=== PATIENT | male | born 1980 | race Hispanic/Latino ===

== ENCOUNTER 2017-06-25 20:09 | Inpatient (IN) | payer OTHER ==
[2017-06-25 20:26] VITALS: BMI 33.9
--- NOTE | 2017-06-25 21:20 | ED PDOC ---
Arrival/HPI - General Chief Complaint: Lower Extremity Problem/Injury Time Seen by Provider: 06/25/17 20:17 Historian: Patient - History of Present Illness Narrative History of Present Illness (Text): 06/25/17 21:21 A 37 year old male, whose past medical history includes alcohol liver disease, possible hepatitis, presents to the emergency department complaining of increasing lower extremity edema and shortness of breath with exertion for the past 1-2 weeks. Patient admits symptoms starting a year ago and PMD relates symptoms to alcohol liver disease. Patient was referred to emergency department by PMD. Denies any recent fever, chills or cough. Notes shortness of breath is worse when climbing stairs. Admits to daily alcohol drinking. Denies any drug use. Patient reports weight gain but denies any chest pain, abdominal pain or any other complaints at this time. PMD: Dr. Moore Time/Duration: Other (1-2 weeks) Symptom Onset: Sudden Symptom Course: Unchanged Activities at Onset: Rest Context: Home Past Medical History - Provider Review Nursing Documentation Reviewed: Yes - Cardiac Hx Cardiac Disorders: No - Pulmonary Hx Respiratory Disorders: No - Neurological Hx Neurological Disorder: No - HEENT Hx HEENT Disorder: No - Renal Hx Renal Disorder: No - Endocrine/Metabolic Hx Endocrine Disorders: No - Hematological/Oncological Hx Blood Disorders: No - Integumentary Hx Dermatological Disorder: No - Musculoskeletal/Rheumatological Hx Musculoskeletal Disorders: No - Gastrointestinal Hx Gastrointestinal Disorders: No - Genitourinary/Gynecological Hx Genitourinary Disorders: No - Psychiatric Hx Psychophysiologic Disorder: No Hx Substance Use: No - Anesthesia Hx Anesthesia: No Family/Social History - Physician Review Nursing Documentation Reviewed: Yes Family/Social History: No Known Family HX Smoking Status: Light Smoker < 10 Cigarettes Daily Hx Alcohol Use: Yes Frequency of alcohol use: Socially Hx Substance Use: No Allergies/Home Meds Allergies/Adverse Reactions: Allergies No Known Allergies Allergy (Verified 06/25/17 20:26) Home Medications: Home Meds Medication Instructions Recorded Confirmed No Known Home Med 06/25/17 06/25/17 Review of Systems - Physician Review All systems were reviewed & negative as marked: Yes - Review of Systems Constitutional: absent: Fevers, Other (chills) Respiratory: SOB (with exertion). absent: Cough Cardiovascular: absent: Chest Pain Gastrointestinal: absent: Abdominal Pain Musculoskeletal: Other (increasing b/l peripheral edema) Physical Exam Vital Signs Reviewed: Yes Vital Signs Temp Pulse Resp BP Pulse Ox 06/25/17 20:26 97.9 F 139 H 18 133/92 H 98 06/25/17 20:25 97.9 F 139 H 18 133/92 H 98 Temperature: Afebrile Blood Pressure: Hypertensive Pulse: Tachycardic Respiratory Rate: Normal Appearance: Positive for: Well-Appearing, Non-Toxic, Comfortable, Other ( shortness of breath with minimal exertion) Pain Distress: None Mental Status: Positive for: Alert and Oriented X 3 - Systems Exam Head: Present: Atraumatic, Normocephalic Pupils: Present: PERRL Extroacular Muscles: Present: EOMI Conjunctiva: Present: Normal Mouth: Present: Moist Mucous Membranes (pink) Neck: Present: Normal Range of Motion. No: JVD Respiratory/Chest: Present: Clear to Auscultation, Good Air Exchange. No: Respiratory Distress, Accessory Muscle Use Cardiovascular: Present: Normal S1, S2, Tachycardic. No: Murmurs Abdomen: Present: Tenderness (minimal diffuse tenderness; questionable ascites) , Distention, Normal Bowel Sounds. No: Peritoneal Signs Back: Present: Normal Inspection Upper Extremity: Present: Normal Inspection. No: Cyanosis, Edema Lower Extremity: Present: Edema (gross peripheral edema b/l) Neurological: Present: GCS=15, CN II-XII Intact, Speech Normal Skin: Present: Warm, Dry, Normal Color. No: Rashes Psychiatric: Present: Alert, Oriented x 3, Normal Insight, Normal Concentration Medical Decision Making ED Course and Treatment: 06/25/17 21:14 Impression: A 37 year old male with increasing lower extremity edema and shortness of breath with exertion. Plan: -- Chest xray -- labs -- Reassess and disposition Progress Notes: - Lab Interpretations Lab Results: 06/25/17 21:05 06/25/17 21:05 Lab Results 06/25/17 21:05: Alcohol, Quantitative 127 H 06/25/17 21:05: Sodium 127 L, Potassium 4.5, Chloride 91 L, Carbon Dioxide 26, Anion Gap 15, BUN 5 L, Creatinine 0.6 L, Est GFR ( Amer) > 60, Est GFR ( Non-Af Amer) > 60, Random Glucose 98, Calcium 9.0, Magnesium 1.6 L, Total Bilirubin 1.7 H, AST 116 H, ALT 124 H, Alkaline Phosphatase 93, Total Protein 6.0, Albumin 3.4, Globulin 2.6, Albumin/Globulin Ratio 1.3 06/25/17 21:05: PT 15.1 H, INR 1.38 H 06/25/17 21:05: WBC 6.2, RBC 3.81, Hgb 13.7 L, Hct 40.9 L, MCV 107.3 H, MCH 36.0 H, MCHC 33.5, RDW 13.5, Plt Count 171, MPV 10.8, Gran % 70.2 H, Lymph % ( Auto) 16.5 L, [place] % (Auto) 12.5 H, Eos % (Auto) 0.5 L, Baso % (Auto) 0.3, Gran # 4.37, Lymph # 1.0 L, [place] # 0.8 H, Eos # 0.0, Baso # 0.02 I have reviewed the lab results: Yes - RAD Interpretation Radiology Orders: 06/25/17 21:50 CHEST TWO VIEWS (PA/LAT) [RAD] Stat - Scribe Statement The provider has reviewed the documentation as recorded by the Yoni Whaley Provider Scribe Attestation: All medical record entries made by the Scribe were at my direction and personally dictated by me. I have reviewed the chart and agree that the record accurately reflects my personal performance of the history, physical exam, medical decision making, and the department course for this patient. I have also personally directed, reviewed, and agree with the discharge instructions and disposition. Disposition/Present on Arrival - Present on Arrival Any Indicators Present on Arrival: No History of DVT/PE: No History of Uncontrolled Diabetes: No Urinary Catheter: No History of Decub. Ulcer: No History Surgical Site Infection Following: None - Disposition Have Diagnosis and Disposition been Completed?: Yes Diagnosis: Anasarca, Alcoholic liver disease Disposition: HOSPITALIZED Disposition Time: 22:30 Patient Plan: Admission Condition: FAIR Referrals: Rios Moore MD [Primary Care Provider] - Follow up with primary Forms: [employer] ([place])
[2017-06-25 21:28] LABS: BASO # 0.02 K/mm3 (0.0-2.0); BASO % 0.3 % (0.0-3.0); EOS % 0.5 % (1.5-5.0); GRAN # 4.37 (1.4-6.5); GRAN % 70.2 % (50.0-68.0); HEMOGLOBIN 13.7 g/dL (14.0-18.0); LYMPH % 16.5 % (22.0-35.0); MEAN CELL VOLUME 107.3 fl (80.0-105.0); MEAN CORPUSCULAR HGB CONC 33.5 g/dl (31.0-37.0); MEAN PLATELET VOLUME 10.8 fl (7.0-11.0); MONO # 0.8 (0.1-0.6); MONO % 12.5 % (1.0-6.0); RBC 3.81 10^6/uL (3.5-6.1); RED CELL DISTRIBUTION WIDTH 13.5 % (11.5-14.5); WHITE BLOOD COUNT 6.2 10^3/ul (4.5-11.0)
[2017-06-25 21:38] LABS: ALB/GLOB RATIO 1.3 (1.1-1.8); ALBUMIN 3.4 g/dL (3.0-4.8); ALT/SGPT 124 U/L (7-56); AST/SGOT 116 U/L (17-59); BLOOD UREA NITROGEN 5 mg/dL (7-21); GFR AFRICAN-AMERICAN > 60; GFR NON-AFRICAN AMERICAN > 60; MAGNESIUM 1.6 mg/dL (1.7-2.2)
[2017-06-25 21:56] LABS: INR 1.38 (0.93-1.08); PROTHROMBIN TIME 15.1 SECONDS (9.4-12.5)
[2017-06-26] MEDS ORDERED: Multivitamin (MVI) 10 ML, Thiamine 100 MG, Folic Acid 1 MG in Sodium Chloride 0.9% 1,00... IV ONE (00:54)
[2017-06-26] MEDS ORDERED: Magnesium Sulfate 2 GM in Sodium Chloride 0.9% 100 ML IVPB ONE ×2 (00:54→10:02)
[2017-06-26 02:17] LABS: TROPONIN I 0.02 ng/mL
--- NOTE | 2017-06-26 02:18 | CP.PCM.HP ---
<Nanci Olivera - Last Filed: 06/26/17 01:38> History of Present Illness - History of Present Illness History of Present Illness: Nanci Olivera DO PGY1 - Internal Medicine H&P CC: Leg swelling HPI: 37 yo M with no significant PMH presents complaining of worsening swelling in both legs up to his mid abdomen, as well as shortness of breath with exertion. Swelling started one month ago in his feet, and progressed over the course of the month resulting in heaviness and weakness in both legs. He also reports poor appetite and fatigue over the past 2-3 weeks, and 5-10 pound weight gain over the past month. Patient reports that he drinks 6-8 alcoholic beverages daily 4-5 days per week for the past 8 years. Last drink was yesterday evening. Patient denies any chest pain, palpitations, abdominal pain, nausea, vomiting, diarrhea, constipation, fever, chills. Remainder of 12 point ROS was negative. PMH: Denies PSH: Denies Home meds: None FHx: Crohn Disease in mother, HTN in father Soc: Drinks 6-8 alcoholic beverages daily 4-5 days per week for the past 8 years ; denies tobacco or illicits All: NKDA Present on Admission - Present on Admission Any Indicators Present on Admission: No Past Patient History - Past Social History Smoking Status: Light Smoker < 10 Cigarettes Daily - CARDIAC Hx Cardiac Disorders: No - PULMONARY Hx Respiratory Disorders: No - NEUROLOGICAL Hx Neurological Disorder: No - HEENT Hx HEENT Problems: No - RENAL Hx Chronic Kidney Disease: No - ENDOCRINE/METABOLIC Hx Endocrine Disorders: No - HEMATOLOGICAL/ONCOLOGICAL Hx Blood Disorders: No - INTEGUMENTARY Hx Dermatological Problems: No - MUSCULOSKELETAL/RHEUMATOLOGICAL Hx Musculoskeletal Disorders: No - GASTROINTESTINAL Hx Gastrointestinal Disorders: No - GENITOURINARY/GYNECOLOGICAL Hx Genitourinary Disorders: No - PSYCHIATRIC Hx Psychophysiologic Disorder: No Hx Substance Use: No - SURGICAL HISTORY Hx Surgeries: No - ANESTHESIA Hx Anesthesia: No Meds Allergies/Adverse Reactions: Allergies Allergy/AdvReac Type Severity Reaction Status Date / Time No Known Allergies Allergy Verified 06/25/17 20:26 Physical Exam - Constitutional Appears: Non-toxic, No Acute Distress - Head Exam Head Exam: ATRAUMATIC, NORMOCEPHALIC - Eye Exam Eye Exam: EOMI, Normal appearance, PERRL, Scleral icterus. absent: Periorbital swelling - ENT Exam ENT Exam: Mucous Membranes Dry - Neck Exam Neck exam: Positive for: Normal Inspection - Respiratory Exam Respiratory Exam: Rales (faint, bibasilar), NORMAL BREATHING PATTERN - Cardiovascular Exam Cardiovascular Exam: Tachycardia, REGULAR RHYTHM, +S1, +S2 Additional comments: Occasionally audible S3 vs split S2 - GI/Abdominal Exam GI & Abdominal Exam: Distended, Normal Bowel Sounds, Soft. absent: Firm, Guarding, Organomegaly, Rebound, Rigid, Tenderness Additional comments: No shifting dullness. No fluid wave. - Extremities Exam Extremities exam: Negative for: calf tenderness Additional comments: 4+ pitting edema to mid abdomen/back - Neurological Exam Neurological exam: Alert, CN II-XII Intact, Oriented x3 Additional comments: Mild tremor in outstretched hands. No asterixis. No confusion. - Psychiatric Exam Psychiatric exam: Normal Affect, Normal Mood Additional comments: Normal thought processes. AAOx3 - Skin Skin Exam: Dry, Intact Additional comments: Grossly jaundiced Excoriations on bilateral flanks, abdomen, and back. Blanchable erythema on face, chest, abdomen, and extremities. No palmar erythema. No telangiectasias. Results - Vital Signs Recent Vital Signs: Last Vital Signs Temp 97.9 F 06/25/17 20:26 Pulse 118 H 06/26/17 00:41 Resp 24 06/26/17 00:41 BP 98/76 L 06/26/17 00:48 Pulse Ox 98 06/26/17 00:41 - Labs Result Diagrams: 06/25/17 21:05 06/25/17 21:05 Labs: Laboratory Results - last 24 hr 06/25/17 22:55 Ammonia < 9 L Assessment & Plan - Assessment and Plan (Free Text) Assessment: 37 yo M with no significant PMH presents complaining of worsening edema and shortness of breath, for the past month; reports chronic alcohol abuse. Decompensated alcoholic liver disease - Patient reports chronic alcohol abuse, now presents with diffuse edema, elevated INR and transaminases - MELD 21 on admission - Monitor daily PT/INR and trend LFTs - Abdomen distended but no shifting dullness/fluid wave; No signs of encephalopathy - Ordered abdominal US to assess for ascites and liver size, echotexture, and nodularity - Ordered viral hepatitis panel - Mild macrocytic anemia on intake labs; ordered serum folate and B12 - Start Lasix and Aldactone, as below - Start Zinc supplement - GI consult requested, appreciate recs Congestive heart failure - Patient clinically appears to be in congestive heart failure; grossly edematous with cardiomegaly on CXR - Ordered BNP and serial troponins - Ordered echo - Start Lasix and Aldactone, as below; Ordered one dose to be given in ER - Requested cardiology consult, appreciate recs Alcohol abuse/withdrawal - Alcohol level in ER 127 - Patient appears to be in early stages of withdrawal - Start CIWA protocol - Start Ativan 2mg IV Q2H PRN for withdrawal - Start Banana Bag - Seizure/Fall precautions Hypervolemic Hyponatremia - Na 127 on admission; patient clinically volume overloaded - Likely 2/2 CHF vs cirrhosis - Ordered Serum and Urine osmolality; urine electrolytes - Start Banana Bag in NS, as above - Start Lasix 20 IV daily, aldactone 25mg BID - Restrict free water GI PPx: Pepcid DVT PPx: Heparin Patient seen, discussed, and reviewed with attending Dr. Casi Gallego <Edu Gallego - Last Filed: 06/29/17 02:06> Results - Vital Signs Recent Vital Signs: Last Vital Signs Temp 98.4 F 06/26/17 05:45 Pulse 117 H 06/26/17 05:45 Resp 20 06/26/17 05:45 BP 110/64 06/26/17 05:45 Pulse Ox 95 06/26/17 05:45 - Labs Result Diagrams: 06/28/17 05:00 06/28/17 05:00 Labs: Laboratory Results - last 24 hr 06/25/17 06/26/17 06/26/17 22:55 01:30 03:20 Ammonia < 9 L Troponin I 0.02 NT-Pro-B Natriuret Pep 5480 H Urine Color Urine Appearance Urine pH Ur Specific [place] Urine Protein Urine Glucose (UA) Urine Ketones Urine Blood Urine Nitrate Urine Bilirubin Urine Urobilinogen Ur Leukocyte Esterase Ur Random Sodium 58 Ur Random Potassium 19.7 06/26/17 03:20 Ammonia Troponin I NT-Pro-B Natriuret Pep Urine Color Straw Urine Appearance Clear Urine pH 6.0 Ur Specific [place] <= 1.005 Urine Protein Negative Urine Glucose (UA) Negative Urine Ketones Negative Urine Blood Negative Urine Nitrate Negative Urine Bilirubin Negative Urine Urobilinogen 0.2 Ur Leukocyte Esterase Negative Ur Random Sodium Ur Random Potassium
[2017-06-26 04:06] LABS: URINE BILIRUBIN NEGATIVE (NEGATIVE); URINE BLOOD NEGATIVE (NEGATIVE); URINE GLUCOSE (UA) NEGATIVE (NEGATIVE); URINE LEUKOCYTE ESTERASE NEGATIVE Leu/uL (NEGATIVE); URINE NITRATE NEGATIVE (NEGATIVE); URINE PROTEIN NEGATIVE mg/dL (<30 mg/dL); URINE UROBILINOGEN 0.2 E.U./dL (<1 E.U./dL)
[2017-06-26 04:19] LABS: URINE APPEARANCE CLEAR (CLEAR); URINE COLOR STRAW (YELLOW)
[2017-06-26 06:39] LABS: BASO # 0.03 K/mm3 (0.0-2.0); BASO % 0.5 % (0.0-3.0); EOS % 0.7 % (1.5-5.0); GRAN # 3.86 (1.4-6.5); GRAN % 69.8 % (50.0-68.0); LYMPH # 0.9 (1.2-3.4); LYMPH % 15.4 % (22.0-35.0); MEAN CORPUSCULAR HEMOGLOBIN 35.7 pg (25.0-35.0); MEAN CORPUSCULAR HGB CONC 33.1 g/dl (31.0-37.0); MEAN PLATELET VOLUME 10.5 fl (7.0-11.0); MONO # 0.8 (0.1-0.6); MONO % 13.6 % (1.0-6.0); RBC 3.64 10^6/uL (3.5-6.1); RED CELL DISTRIBUTION WIDTH 13.7 % (11.5-14.5); WHITE BLOOD COUNT 5.5 10^3/ul (4.5-11.0)
[2017-06-26 06:55] LABS: ALBUMIN 3.1 g/dL (3.0-4.8); ALT/SGPT 118 U/L (7-56); AST/SGOT 108 U/L (17-59); BLOOD UREA NITROGEN 4 mg/dL (7-21); CALCIUM 8.8 mg/dL (8.4-10.5); GFR AFRICAN-AMERICAN > 60; GFR NON-AFRICAN AMERICAN > 60; MAGNESIUM 1.6 mg/dL (1.7-2.2)
[2017-06-26 06:57] LABS: TROPONIN I 0.03 ng/mL
[2017-06-26 06:59] LABS: INR 1.34 (0.93-1.08); PROTHROMBIN TIME 14.8 SECONDS (9.4-12.5)
[2017-06-26 07:30] LABS: ALB/GLOB RATIO 1.3 (1.1-1.8)
--- NOTE | 2017-06-26 08:45 | RAD ---
HISTORY: Shortness of breath. COMPARISON: No prior. TECHNIQUE: Chest PA and lateral FINDINGS: LUNGS: Right lower lobe infiltrate suggestive of pneumonia. PLEURA: No significant pleural effusion identified. No pneumothorax apparent. CARDIOVASCULAR: Cardiomegaly, pulmonary vascular prominence. OSSEOUS STRUCTURES: No significant abnormalities. VISUALIZED UPPER ABDOMEN: Normal. OTHER FINDINGS: None. IMPRESSION: Right lower lobe infiltrate suspicious for pneumonia.
--- NOTE | 2017-06-26 08:57 | US ---
HISTORY: Cirrhosis/ascites COMPARISON: None. TECHNIQUE: Sonographic evaluation of the abdomen. FINDINGS: LIVER: Measures 21.8 cm. Hepatopedal blood flow. Fatty infiltration manifest ultrasonographically as increased echogenicity of the liver parenchyma. No mass. No intrahepatic bile duct dilatation. GALLBLADDER: Distended gallbladder. No gallstones identified. COMMON BILE DUCT: Measures 5.3 mm. No stones. No dilatation. PANCREAS: Unremarkable as visualized. No mass. No ductal dilatation. RIGHT KIDNEY: Measures 5.3 x 13.2cm. Normal echogenicity. No calculus, mass, or hydronephrosis. LEFT KIDNEY: Measures 6.4 x 14.3cm. Normal echogenicity. No calculus, mass, or hydronephrosis. SPLEEN: Normal in size and contour. No mass. AORTA: No aneurysmal dilatation. IVC: Unremarkable. OTHER FINDINGS: None. IMPRESSION: Hepatomegaly, hepatic steatosis. No evidence of intra-abdominal fluid.
[2017-06-26] MEDS ORDERED: Ipratropium 0.02% Inhal Soln (0.5 mg/2.5 ml) UD IH STA (11:11)
[2017-06-26 11:47] LABS: HEPATITIS B SURFACE AG NEGATIVE (NEGATIVE)
[2017-06-26 11:52] LABS: HEPATITIS A IGM NEGATIVE (NEGATIVE); HEPATITIS B CORE AB Negative (NEGATIVE)
[2017-06-26 12:04] LABS: HEPATITIS C ANTIBODY Negative (NEGATIVE)
[2017-06-26 12:26] LABS: FOLATE > 20.0 ng/mL
--- NOTE | 2017-06-26 13:20 | CON ---
DATE: 06/26/2017 CARDIOLOGY CONSULTATION HISTORY OF PRESENT ILLNESS: The patient is a 37-year-old male who presents with edema in the lower extremities over the past month. He saw his primary care doctor who sent him to the Emergency Room. PAST MEDICAL HISTORY: Notable for heavy alcohol use including 6-7 drinks a day daily. He was told of perhaps liver issues in the past but continues to drink. He denies any medications. No diabetes mellitus. No hypertension. SOCIAL HISTORY: He does smoke pot. REVIEW OF SYSTEMS: A 14-point review of systems is reviewed in detail. The patient complains of dyspnea and progressive edema. No chest pain. There is a remote history of when he was a child of what sounds like VSD, which resolved spontaneously. PHYSICAL EXAMINATION: VITAL SIGNS: Blood pressure is 110/54, heart rate is narrow complex tachycardia at 140. NECK: Negative JVD. LUNGS: Bilateral rales. HEART: Reveal S1 and S2. EXTREMITIES: 2+ edema. IMAGING STUDIES: EKG shows sinus tachycardia at 120. LABORATORY DATA: ProBNP is 5480. BUN and creatinine are unremarkable. The liver enzymes are elevated. Hemoglobin is 13. IMPRESSION: 1. Acute systolic congestive heart failure. 2. Narrow complex tachycardia, which likely represents sinus tachycardia. The patient was given 6 mg and 12 mg of IV Adenocard, which showed no change in his heart rhythm. 3. Need to rule out alcoholic cardiomyopathy. 4. Alcoholic disease of the liver. PLAN: Given these findings, we will increase his Lasix to 40 IV b.i.d. We will obtain a stat echocardiogram. His magnesium 1.6, will need to be replaced. Daniel Hernandez MD
--- NOTE | 2017-06-26 13:45 | CP.PCM.CON ---
<Robby Crook - Last Filed: 06/26/17 15:03> History of Present Illness - History of Present Illness History of Present Illness: Critical Care Consult Note for Dr. 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 Patient was admitted on 06/25 for these symptoms. He states swelling started one month ago. During that time period, he reports 5-10 pound weight gain. Patient reports that he drinks 4-5 days per week for the past 8-9 years. Last drink was two days ago. Patient states that he has had increasing pain when walking stairs. He states he is able to walk stairs without getting short of breath. Patient sleeps with one pillow at night. Patient also reports that he is able to walk several blocks before getting tired. Echo was done on this admission with EF ~ 10%. Admits cough and mild tremor. Denies fever/chills, orthopnea, chest pain, palpitations, abdominal pain , nausea/vomiting, diarrhea. 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 Meds: As per EMR Allergy: NKDA PSH: Denies FH: Crohn Disease in mother, HTN in father Social: Drinks 4-5 alcoholic beverages daily 4-5 days per week for the past 8 years; denies tobacco or illicit drug use Review of Systems - Review of Systems All systems: reviewed and no additional remarkable complaints except (as per HPI ) Past Patient History - Past Social History Smoking Status: Light Smoker < 10 Cigarettes Daily - CARDIAC Hx Cardiac Disorders: No - PULMONARY Hx Respiratory Disorders: No - NEUROLOGICAL Hx Neurological Disorder: No - HEENT Hx HEENT Problems: No - RENAL Hx Chronic Kidney Disease: No - ENDOCRINE/METABOLIC Hx Endocrine Disorders: No - HEMATOLOGICAL/ONCOLOGICAL Hx Blood Disorders: No - INTEGUMENTARY Hx Dermatological Problems: No - MUSCULOSKELETAL/RHEUMATOLOGICAL Hx Musculoskeletal Disorders: No - GASTROINTESTINAL Hx Gastrointestinal Disorders: No - GENITOURINARY/GYNECOLOGICAL Hx Genitourinary Disorders: No - PSYCHIATRIC Hx Psychophysiologic Disorder: No Hx Substance Use: No - SURGICAL HISTORY Hx Surgeries: No - ANESTHESIA Hx Anesthesia: No Meds Allergies/Adverse Reactions: Allergies Allergy/AdvReac Type Severity Reaction Status Date / Time No Known Allergies Allergy Verified 06/25/17 20:26 - Medications Medications: Current Medications Famotidine (Pepcid) 40 mg PO BID [facility] Last Admin: 06/26/17 09:48 Dose: 40 mg Folic Acid (Folic Acid) 1 mg PO DAILY [facility] Last Admin: 06/26/17 09:48 Dose: 1 mg Furosemide (Lasix) 40 mg IVP BID [facility] Heparin Sodium (Porcine) (Heparin) 5,000 units SC Q8 MOO PRN Reason: Protocol Last Admin: 06/26/17 05:26 Dose: 5,000 units Lorazepam (Ativan) 1 mg IVP Q6H PRN; Protocol PRN Reason: Anxiety Lorazepam (Ativan) 1 mg IVP Q4H PRN PRN Reason: WITHDRAWAL or Agitation Magnesium Oxide (Mag-Ox) 400 mg PO ONCE ONE Stop: 06/26/17 14:01 Spironolactone (Aldactone) 25 mg PO BID [facility] Last Admin: 06/26/17 09:48 Dose: 25 mg Thiamine HCl (Vitamin B1 Tab) 100 mg PO DAILY [facility] Last Admin: 06/26/17 09:48 Dose: 100 mg Zinc Sulfate (Zinc Sulfate 220 Mg Cap) 220 mg PO DAILY [facility] Last Admin: 06/26/17 09:48 Dose: 220 mg Physical Exam - Constitutional Appears: No Acute Distress - Head Exam Head Exam: ATRAUMATIC, NORMOCEPHALIC - Eye Exam Eye Exam: EOMI, Scleral icterus Pupil Exam: PERRL - ENT Exam ENT Exam: Mucous Membranes Moist - Respiratory Exam Respiratory Exam: Rales, NORMAL BREATHING PATTERN. absent: Respiratory Distress - Cardiovascular Exam Cardiovascular Exam: Tachycardia - GI/Abdominal Exam GI & Abdominal Exam: Distended, Normal Bowel Sounds, Soft. absent: Firm, Guarding, Rebound, Tenderness - Extremities Exam Extremities exam: Positive for: normal capillary refill, pedal edema (bilateral LE edema and erythema), pedal pulses present. Negative for: calf tenderness - Back Exam Back exam: absent: CVA tenderness (L), CVA tenderness (R) - Neurological Exam Neurological exam: Alert, CN II-XII Intact, Oriented x3 Additional comments: mild tremors of upper extremities - Psychiatric Exam Psychiatric exam: Normal Affect, Normal Mood - Skin Skin Exam: Dry, Erythema (bilateral lower extremities), Warm Results - Vital Signs Recent Vital Signs: Last Vital Signs Temp 99.0 F 06/26/17 12:00 Pulse 113 H 06/26/17 12:00 Resp 22 06/26/17 12:00 BP 147/99 H 06/26/17 12:00 Pulse Ox 95 06/26/17 06:00 - Labs Result Diagrams: 06/26/17 05:30 06/26/17 05:30 Labs: Laboratory Results - last 24 hr 06/25/17 06/26/17 06/26/17 22:55 01:30 01:30 WBC RBC Hgb Hct MCV MCH MCHC RDW Plt Count MPV Gran % Lymph % (Auto) [place] % (Auto) Eos % (Auto) Baso % (Auto) Gran # Lymph # [place] # Eos # Baso # PT INR Sodium Potassium Chloride Carbon Dioxide Anion Gap BUN Creatinine Est GFR ( Amer) Est GFR (Non-Af Amer) Random Glucose Serum Osmolality Calcium Phosphorus Magnesium Total Bilirubin AST ALT Alkaline Phosphatase Ammonia < 9 L Troponin I 0.02 NT-Pro-B Natriuret Pep 5480 H Total Protein Albumin Globulin Albumin/Globulin Ratio Folate Urine Color Urine Appearance Urine pH Ur Specific [place] Urine Protein Urine Glucose (UA) Urine Ketones Urine Blood Urine Nitrate Urine Bilirubin Urine Urobilinogen Ur Leukocyte Esterase Urine Osmolality Ur Random Sodium Ur Random Potassium Hepatitis A IgM Ab Negative Hep Bs Antigen Negative Hep B Core IgM Ab Negative Hepatitis C Antibody Negative 06/26/17 06/26/17 06/26/17 01:30 03:20 03:20 WBC RBC Hgb Hct MCV MCH MCHC RDW Plt Count MPV Gran % Lymph % (Auto) [place] % (Auto) Eos % (Auto) Baso % (Auto) Gran # Lymph # [place] # Eos # Baso # PT INR Sodium Potassium Chloride Carbon Dioxide Anion Gap BUN Creatinine Est GFR ( Amer) Est GFR (Non-Af Amer) Random Glucose Serum Osmolality 295 Calcium Phosphorus Magnesium Total Bilirubin AST ALT Alkaline Phosphatase Ammonia Troponin I NT-Pro-B Natriuret Pep Total Protein Albumin Globulin Albumin/Globulin Ratio Folate Urine Color Urine Appearance Urine pH Ur Specific [place] Urine Protein Urine Glucose (UA) Urine Ketones Urine Blood Urine Nitrate Urine Bilirubin Urine Urobilinogen Ur Leukocyte Esterase Urine Osmolality 169 L Ur Random Sodium 58 Ur Random Potassium 19.7 Hepatitis A IgM Ab Hep Bs Antigen Hep B Core IgM Ab Hepatitis C Antibody 06/26/17 06/26/17 06/26/17 03:20 05:30 05:30 WBC 5.5 RBC 3.64 Hgb 13.0 L Hct 39.3 L MCV 108.0 H MCH 35.7 H MCHC 33.1 RDW 13.7 Plt Count 160 MPV 10.5 Gran % 69.8 H Lymph % (Auto) 15.4 L [place] % (Auto) 13.6 H Eos % (Auto) 0.7 L Baso % (Auto) 0.5 Gran # 3.86 Lymph # 0.9 L [place] # 0.8 H Eos # 0.0 Baso # 0.03 PT 14.8 H INR 1.34 H Sodium Potassium Chloride Carbon Dioxide Anion Gap BUN Creatinine Est GFR ( Amer) Est GFR (Non-Af Amer) Random Glucose Serum Osmolality Calcium Phosphorus Magnesium Total Bilirubin AST ALT Alkaline Phosphatase Ammonia Troponin I NT-Pro-B Natriuret Pep Total Protein Albumin Globulin Albumin/Globulin Ratio Folate Urine Color Straw Urine Appearance Clear Urine pH 6.0 Ur Specific [place] <= 1.005 Urine Protein Negative Urine Glucose (UA) Negative Urine Ketones Negative Urine Blood Negative Urine Nitrate Negative Urine Bilirubin Negative Urine Urobilinogen 0.2 Ur Leukocyte Esterase Negative Urine Osmolality Ur Random Sodium Ur Random Potassium Hepatitis A IgM Ab Hep Bs Antigen Hep B Core IgM Ab Hepatitis C Antibody 06/26/17 06/26/17 05:30 09:00 WBC RBC Hgb Hct MCV MCH MCHC RDW Plt Count MPV Gran % Lymph % (Auto) [place] % (Auto) Eos % (Auto) Baso % (Auto) Gran # Lymph # [place] # Eos # Baso # PT INR Sodium 134 Potassium 3.6 Chloride 96 L Carbon Dioxide 28 Anion Gap 13 BUN 4 L Creatinine 0.5 L Est GFR ( Amer) > 60 Est GFR (Non-Af Amer) > 60 Random Glucose 75 Serum Osmolality Calcium 8.8 Phosphorus 4.6 H Magnesium 1.6 L Total Bilirubin 1.9 H AST 108 H ALT 118 H Alkaline Phosphatase 87 Ammonia Troponin I 0.03 D 0.03 NT-Pro-B Natriuret Pep Total Protein 5.5 L Albumin 3.1 Globulin 2.5 Albumin/Globulin Ratio 1.3 Folate > 20.0 Urine Color Urine Appearance Urine pH Ur Specific [place] Urine Protein Urine Glucose (UA) Urine Ketones Urine Blood Urine Nitrate Urine Bilirubin Urine Urobilinogen Ur Leukocyte Esterase Urine Osmolality Ur Random Sodium Ur Random Potassium Hepatitis A IgM Ab Hep Bs Antigen Hep B Core IgM Ab Hepatitis C Antibody Assessment & Plan - Assessment and Plan (Free Text) Plan: 37 M with recent diagnosis of alcoholic liver disease and 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 Transferred to ICU for EtOH withdrawal monitoring. [facility] protocol Strict I's & O's Seizure/Aspiration precautions Fall risk Daily weights Head of bed 30 degrees Cardio consult, Dr. Hernandez, help appreciated GI consult, Dr. Bailey, help appreciated Ativan PRN Lasix - titrate to urine output Spironolactone MVM, Folic acid, Thiamine, Zinc HHD GI/DVT ppx Discussed with Dr. Kamila Crook PGY1 <Dylon Treviño - Last Filed: 06/26/17 15:11> Meds - Medications Medications: Current Medications Carvedilol (Coreg) 3.125 mg PO BID [facility] Enoxaparin Sodium (Lovenox) 120 mg SC Q12H MOO PRN Reason: Protocol Famotidine (Pepcid) 40 mg PO BID [facility] Last Admin: 06/26/17 09:48 Dose: 40 mg Folic Acid (Folic Acid) 1 mg PO DAILY [facility] Last Admin: 06/26/17 09:48 Dose: 1 mg Furosemide (Lasix) 40 mg IVP BID PRN PRN Reason: Swelling Lorazepam (Ativan) 1 mg IVP Q4H PRN PRN Reason: WITHDRAWAL or Agitation Lorazepam (Ativan) 1 mg IVP Q6H MOO PRN Reason: Protocol Last Admin: 06/26/17 14:34 Dose: 1 mg Spironolactone (Aldactone) 25 mg PO BID [facility] Last Admin: 06/26/17 09:48 Dose: 25 mg Thiamine HCl (Vitamin B1 Tab) 100 mg PO DAILY [facility] Last Admin: 06/26/17 09:48 Dose: 100 mg Zinc Sulfate (Zinc Sulfate 220 Mg Cap) 220 mg PO DAILY [facility] Last Admin: 06/26/17 09:48 Dose: 220 mg Results - Vital Signs Recent Vital Signs: Last Vital Signs Temp 99.0 F 06/26/17 12:00 Pulse 140 H 06/26/17 14:00 Resp 22 06/26/17 12:00 BP 129/85 06/26/17 14:33 Pulse Ox 95 06/26/17 06:00 - Labs Result Diagrams: 06/26/17 05:30 06/26/17 05:30 Labs: Laboratory Results - last 24 hr 06/25/17 06/26/17 06/26/17 22:55 01:30 01:30 WBC RBC Hgb Hct MCV MCH MCHC RDW Plt Count MPV Gran % Lymph % (Auto) [place] % (Auto) Eos % (Auto) Baso % (Auto) Gran # Lymph # [place] # Eos # Baso # PT INR Sodium Potassium Chloride Carbon Dioxide Anion Gap BUN Creatinine Est GFR ( Amer) Est GFR (Non-Af Amer) Random Glucose Serum Osmolality Calcium Phosphorus Magnesium Total Bilirubin AST ALT Alkaline Phosphatase Ammonia < 9 L Troponin I 0.02 NT-Pro-B Natriuret Pep 5480 H Total Protein Albumin Globulin Albumin/Globulin Ratio Folate Urine Color Urine Appearance Urine pH Ur Specific [place] Urine Protein Urine Glucose (UA) Urine Ketones Urine Blood Urine Nitrate Urine Bilirubin Urine Urobilinogen Ur Leukocyte Esterase Urine Osmolality Ur Random Sodium Ur Random Potassium Hepatitis A IgM Ab Negative Hep Bs Antigen Negative Hep B Core IgM Ab Negative Hepatitis C Antibody Negative 06/26/17 06/26/17 06/26/17 01:30 03:20 03:20 WBC RBC Hgb Hct MCV MCH MCHC RDW Plt Count MPV Gran % Lymph % (Auto) [place] % (Auto) Eos % (Auto) Baso % (Auto) Gran # Lymph # [place] # Eos # Baso # PT INR Sodium Potassium Chloride Carbon Dioxide Anion Gap BUN Creatinine Est GFR ( Amer) Est GFR (Non-Af Amer) Random Glucose Serum Osmolality 295 Calcium Phosphorus Magnesium Total Bilirubin AST ALT Alkaline Phosphatase Ammonia Troponin I NT-Pro-B Natriuret Pep Total Protein Albumin Globulin Albumin/Globulin Ratio Folate Urine Color Urine Appearance Urine pH Ur Specific [place] Urine Protein Urine Glucose (UA) Urine Ketones Urine Blood Urine Nitrate Urine Bilirubin Urine Urobilinogen Ur Leukocyte Esterase Urine Osmolality 169 L Ur Random Sodium 58 Ur Random Potassium 19.7 Hepatitis A IgM Ab Hep Bs Antigen Hep B Core IgM Ab Hepatitis C Antibody 06/26/17 06/26/17 06/26/17 03:20 05:30 05:30 WBC 5.5 RBC 3.64 Hgb 13.0 L Hct 39.3 L MCV 108.0 H MCH 35.7 H MCHC 33.1 RDW 13.7 Plt Count 160 MPV 10.5 Gran % 69.8 H Lymph % (Auto) 15.4 L [place] % (Auto) 13.6 H Eos % (Auto) 0.7 L Baso % (Auto) 0.5 Gran # 3.86 Lymph # 0.9 L [place] # 0.8 H Eos # 0.0 Baso # 0.03 PT 14.8 H INR 1.34 H Sodium Potassium Chloride Carbon Dioxide Anion Gap BUN Creatinine Est GFR ( Amer) Est GFR (Non-Af Amer) Random Glucose Serum Osmolality Calcium Phosphorus Magnesium Total Bilirubin AST ALT Alkaline Phosphatase Ammonia Troponin I NT-Pro-B Natriuret Pep Total Protein Albumin Globulin Albumin/Globulin Ratio Folate Urine Color Straw Urine Appearance Clear Urine pH 6.0 Ur Specific [place] <= 1.005 Urine Protein Negative Urine Glucose (UA) Negative Urine Ketones Negative Urine Blood Negative Urine Nitrate Negative Urine Bilirubin Negative Urine Urobilinogen 0.2 Ur Leukocyte Esterase Negative Urine Osmolality Ur Random Sodium Ur Random Potassium Hepatitis A IgM Ab Hep Bs Antigen Hep B Core IgM Ab Hepatitis C Antibody 06/26/17 06/26/17 05:30 09:00 WBC RBC Hgb Hct MCV MCH MCHC RDW Plt Count MPV Gran % Lymph % (Auto) [place] % (Auto) Eos % (Auto) Baso % (Auto) Gran # Lymph # [place] # Eos # Baso # PT INR Sodium 134 Potassium 3.6 Chloride 96 L Carbon Dioxide 28 Anion Gap 13 BUN 4 L Creatinine 0.5 L Est GFR ( Amer) > 60 Est GFR (Non-Af Amer) > 60 Random Glucose 75 Serum Osmolality Calcium 8.8 Phosphorus 4.6 H Magnesium 1.6 L Total Bilirubin 1.9 H AST 108 H ALT 118 H Alkaline Phosphatase 87 Ammonia Troponin I 0.03 D 0.03 NT-Pro-B Natriuret Pep Total Protein 5.5 L Albumin 3.1 Globulin 2.5 Albumin/Globulin Ratio 1.3 Folate > 20.0 Urine Color Urine Appearance Urine pH Ur Specific [place] Urine Protein Urine Glucose (UA) Urine Ketones Urine Blood Urine Nitrate Urine Bilirubin Urine Urobilinogen Ur Leukocyte Esterase Urine Osmolality Ur Random Sodium Ur Random Potassium Hepatitis A IgM Ab Hep Bs Antigen Hep B Core IgM Ab Hepatitis C Antibody Assessment & Plan - Assessment and Plan (Free Text) Plan: Patient seen and examined with resident, agree with note with following additions/exceptions: Patient is 37yo male with PMHx of heavy etoh abuse of 4-5 drinks per day for the last 7-8 years presents intoxicated complaining of SOB, and LE edema. Pt noted to have severe dilated cardiomyopathy on ECHO, and worsening SOB. Transferred to MICU. Currently afebrile, HD stable, comfortable, in NAD. Acute Decompesanted CHF, systolic LE edema Alcohlic CM SOB EtOH abuse EtoH withdrawal Recommend: - supp o2 as needed - recio culture, check procalcitonin - would cover for CAP, Rocephin, Azithro - IV diuresis - Lovenox - Daiy weights - I/Os - CIWA protocol - MVT,Thiamine, Folic Acid - GI ppx - DVT ppx - Monitor in MICU critical care time 35 minutes
--- NOTE | 2017-06-26 13:54 | CARD ---
APPROVED REPORT EXAM: Two-dimensional and M-mode echocardiogram with Doppler and color Doppler. INDICATION Congestive Heart Failure Cardiomegaly 2D DIMENSIONS Left Atrium (2D)5.2 (1.6-4.0cm)IVSd1.3 (0.7-1.1cm) LVDd6.3 (3.9-5.9cm)PWd1.3 (0.7-1.1cm) LVDs6.1 (2.5-4.0cm)FS (%) 3.5 % LVEF (%)7.5 (>50%) M-Mode DIMENSIONS Aortic Root3.20 (2.2-3.7cm)Aortic Cusp Exc.2.30 (1.5-2.0cm) Aortic Valve AoV Peak Nhnaepwu99.1cm/Oriana Peak GR.4mmHg Mitral Valve E/A ratio0.0 TDI E/Lateral E'0.0E/Medial E'0.0 Tricuspid Valve TR Peak [id number] Peak Gr.27mmHg [id number] LEFT VENTRICLE The Left Ventricle is borderline dilated. The systolic function is severely impaired. RIGHT VENTRICLE The right ventricle is moderately dilated. ATRIA The left atrium is moderately dilated. The right atrium is moderately dilated. AORTIC VALVE The aortic valve is thickened but opens well. There is mild aortic regurgitation. MITRAL VALVE The mitral valve is thickened but opens well. Mitral regurgitation is mild. TRICUSPID VALVE The tricuspid valve leaflets are thickened , but open well. There is mild tricuspid regurgitation. There is mild pulmonary hypertension. PULMONIC VALVE The pulmonic valve is not well visualized. PERICARDIAL EFFUSION There is no pericardial effusion. <Conclusion> Four chamber enlargement Severe LV hypokinesis Mild AI, MR and TR Mild pulmonary hypertension Findings c/w Severe Dilated Cardiomyopathy
[2017-06-26] MEDS ORDERED: Magnesium Oxide 400 mg Tab UD PO ONE (14:00)
[2017-06-26] MEDS ORDERED: Enoxaparin 120 mg Syringe SC SCH (15:00)
--- NOTE | 2017-06-26 18:17 | CARD ---
APPROVED REPORT EKG Measurement Heart [id number] <Conclusion> Sinus tachycardia Possible Left atrial enlargement Cannot rule out Anterior infarct, age undetermined Abnormal ECG
[2017-06-26] MEDS ORDERED: Enoxaparin 150 mg Syringe SC SCH (22:00)
[2017-06-26] MEDS: Enoxaparin 120 mg Syringe SC SCH (22:41)
[2017-06-27 05:45] LABS: BASO # 0.05 K/mm3 (0.0-2.0); EOS # 0.1 (0.0-0.7); EOS % 1.2 % (1.5-5.0); GRAN # 3.24 (1.4-6.5); GRAN % 64.5 % (50.0-68.0); HEMOGLOBIN 12.9 g/dL (14.0-18.0); LYMPH # 1.1 (1.2-3.4); LYMPH % 21.3 % (22.0-35.0); MEAN CELL VOLUME 110.5 fl (80.0-105.0); MEAN CORPUSCULAR HEMOGLOBIN 35.7 pg (25.0-35.0); MEAN CORPUSCULAR HGB CONC 32.3 g/dl (31.0-37.0); MEAN PLATELET VOLUME 10.4 fl (7.0-11.0); MONO # 0.6 (0.1-0.6); RBC 3.61 10^6/uL (3.5-6.1); RED CELL DISTRIBUTION WIDTH 13.9 % (11.5-14.5)
[2017-06-27 05:57] LABS: INR 1.38 (0.93-1.08); PROTHROMBIN TIME 15.3 SECONDS (9.4-12.5)
[2017-06-27 06:25] LABS: ALB/GLOB RATIO 1.2 (1.1-1.8); ALT/SGPT 106 U/L (7-56); AST/SGOT 89 U/L (17-59); BLOOD UREA NITROGEN 5 mg/dL (7-21); CALCIUM 8.7 mg/dL (8.4-10.5); GFR AFRICAN-AMERICAN > 60; GFR NON-AFRICAN AMERICAN > 60; MAGNESIUM 1.5 mg/dL (1.7-2.2)
[2017-06-27] MEDS ORDERED: Magnesium Sulfate 2 GM in Sodium Chloride 0.9% 100 ML IVPB ONE (07:23)
[2017-06-27] MEDS: Potassium Chloride 20 mEq ER Tab PO SCH ×2 (09:15→13:39)
[2017-06-27] MEDS: Enoxaparin 120 mg Syringe SC SCH ×2 (09:16→22:46)
[2017-06-27] MEDS: Milrinone 20mg/100ml D5W 100 ML IV PRN ×2 (10:06→17:32)
--- NOTE | 2017-06-27 10:13 | RAD ---
HISTORY: CHF COMPARISON: Comparison chest 06/25/2017. FINDINGS: LUNGS: Mild pulmonary vascular congestive changes with what appear to represent mild bilateral lower lobe alveolar-type infiltrates. PLEURA: No significant pleural effusion identified, no pneumothorax apparent. CARDIOVASCULAR: Heart is markedly wilfrido enlarged. OSSEOUS STRUCTURES: No significant abnormalities. VISUALIZED UPPER ABDOMEN: Normal. OTHER FINDINGS: None. IMPRESSION: Mild pulmonary vascular congestive changes with what appear to represent mild bilateral lower lobe alveolar-type infiltrates. Marked cardiomegaly.
--- NOTE | 2017-06-27 10:27 | PN ---
DATE: 06/27/2017 CARDIOLOGY FOLLOWUP NOTE SUBJECTIVE: The patient's breathing is much improved. OBJECTIVE: VITAL SIGNS: Blood pressure is 119/84 and heart rate is 127. NECK: Negative JVD. LUNGS: Decreased breath sounds. HEART: Reveal S1, S2. EXTREMITIES: Decreased edema but still persistent. LABORATORY DATA: Hemoglobin is 12.9. BUN and creatinine are 5 and 0.6 with the potassium of 3.2 and magnesium of 1.5. IMPRESSION: 1. End-stage alcoholic cardiomyopathy. 2. Congestive heart failure. 3. Severe pedal edema. 4. Dyspnea. 5. Alcoholism. PLAN: Given these findings, we will increase the Coreg to 6.25. We will begin IV Primacor. Daniel Hernandez MD
--- NOTE | 2017-06-27 13:10 | CP.PCM.PN ---
"<Yo Sales - Last Filed: 06/27/17 16:27> Subjective - Date & Time of Evaluation Date of Evaluation: 06/27/17 Time of Evaluation: 16:27 - Subjective Subjective: Patient has been seen and examined. No overnight events reported. Denies any fever, chest pain, palpitations, abdominal pain, n/v/d, constipation, or any urinary symptoms. States that his SOB is improved from yesterday. Objective - Vital Signs/Intake and Output Vital Signs (last 24 hours): Temp Pulse Resp BP Pulse Ox 97.7 F 127 H 26 H 114/81 98 06/27/17 00:00 06/27/17 10:06 06/27/17 08:30 06/27/17 10:06 06/27/17 08:30 Intake and Output: 06/27/17 06/27/17 06:59 18:59 Intake Total 300 Output Total 480 Balance -180 - Medications Medications: Current Medications Carvedilol (Coreg) 6.25 mg PO BID [facility] Last Admin: 06/27/17 09:13 Dose: 6.25 mg Enoxaparin Sodium (Lovenox) 110 mg SC Q12 MOO PRN Reason: Protocol Last Admin: 06/27/17 09:16 Dose: 110 mg Famotidine (Pepcid) 40 mg PO BID [facility] Last Admin: 06/27/17 09:12 Dose: 40 mg Folic Acid (Folic Acid) 1 mg PO DAILY [facility] Last Admin: 06/27/17 09:12 Dose: 1 mg Furosemide (Lasix) 40 mg IVP BID PRN PRN Reason: Swelling Milrinone Lactate/Dextrose (Primacor 20mg/100ml D5w) 100 mls @ 12.145 mls/hr IV .Q8H15M PRN; Protocol; 0.375 MCG/KG/MIN PRN Reason: TITRATE PER MD ORDER Last Admin: 06/27/17 10:06 Dose: 0.375 mcg/kg/min, 12.145 mls/hr Lorazepam (Ativan) 1 mg IVP Q4H PRN PRN Reason: WITHDRAWAL or Agitation Lorazepam (Ativan) 1 mg IVP Q6H MOO PRN Reason: Protocol Last Admin: 06/27/17 09:05 Dose: 1 mg Ondansetron HCl (Zofran Inj) 4 mg IVP Q6H PRN PRN Reason: Nausea/Vomiting Spironolactone (Aldactone) 25 mg PO BID [facility] Last Admin: 06/27/17 09:12 Dose: 25 mg Thiamine HCl (Vitamin B1 Tab) 100 mg PO DAILY [facility] Last Admin: 06/27/17 09:13 Dose: 100 mg Zinc Sulfate (Zinc Sulfate 220 Mg Cap) 220 mg PO DAILY [facility] Last Admin: 06/27/17 09:13 Dose: 220 mg - Labs Labs: 06/27/17 05:15 06/27/17 05:15 PT 15.3 SECONDS (9.4-12.5) H 06/27/17 05:15 INR 1.38 (0.93-1.08) H 06/27/17 05:15 - Additional Findings Additional findings: - Constitutional Appears: Non-toxic, No Acute Distress - Head Exam Head Exam: ATRAUMATIC, NORMOCEPHALIC - Eye Exam Eye Exam: EOMI, Normal appearance, PERRL, Scleral icterus. absent: Periorbital swelling - ENT Exam ENT Exam: Mucous Membranes Dry - Neck Exam Neck exam: Positive for: Normal Inspection - Respiratory Exam Respiratory Exam: Rales (faint, bibasilar), NORMAL BREATHING PATTERN - Cardiovascular Exam Cardiovascular Exam: Tachycardia, REGULAR RHYTHM, +S1, +S2 - GI/Abdominal Exam GI & Abdominal Exam: Distended, Normal Bowel Sounds, Soft. absent: Firm, Guarding, Organomegaly, Rebound, Rigid, Tenderness Additional comments: No shifting dullness. No fluid wave. - Extremities Exam Extremities exam: Negative for: calf tenderness Additional comments: 3+ pitting edema to knees - Neurological Exam Neurological exam: Alert, CN II-XII Intact, Oriented x3 Additional comments: Mild tremor in outstretched hands (improved) No asterixis. No confusion. - Psychiatric Exam Psychiatric exam: Normal Affect, Normal Mood Additional comments: Normal thought processes. AAOx3 - Skin Skin Exam: Dry, Intact Additional comments: Assessment and Plan - Assessment and Plan (Free Text) Assessment: 37 yo M with no significant PMH presents complaining of worsening edema and shortness of breath, for the past month; reports chronic alcohol abuse. Plan: Decompensated alcoholic liver disease - MELD 21 on admission - Monitor daily PT/INR - trend LFTs (Downtrending) - Abd US (06/26/17): Hepatomegaly, steatosis, no evidence of free fluid in the abdomen. - Hep Panel: NEGATIVE - B12 and Folate: WNL - Cont. Lasix 40 IVP BID PRN and Aldactone 25 BID MOO, as below - Cont. Zinc supplement - GI consult requested, F/U with Recs Congestive heart failure - BNP 5480 on Admission | Troponins - NEGATIVE x 3 - EKG (06/27) - Sinus Tach/ non-specific T wave abnormality - CXR (06/27) - Mild pulmonary vascular congestive changes with what appear to represent mild b/l lower lobe alveolar-type infiltrates - ECHO (06/26): 4 chamber enlargement Severe LV hypokinesis Mild AI, MR, and TR Mild Pulm HTN Findings c/w Severe Dilated Cardiomyopathy (EF- 7.5%) - Lasix 40 IVP BID PRN and Aldactone 25 BID MOO - Requested cardiology consult (Dr. Hernandez), appreciate recs +Milrinone Drip 0.375 mcg/kg/min +Coreg 6.25 PO BID Alcohol abuse/withdrawal - Alcohol level in ER 127 - Start CIWA protocol - Ativan 1 IVP Q4H PRN, Ativan 1mg IVP Q6H MOO - B12, Folate, Multivitamins - Seizure/Fall precautions Hypervolemic Hyponatremia (Resolved) - Na 127 on admission; patient clinically volume overloaded - Likely 2/2 CHF vs cirrhosis - Urine Osm (06/26) - Low @ 169 | Urine Electrolytes - WNL - Restrict free water GI PPx: Pepcid DVT PPx: Heparin Dispo: Transferred to ICU yesterday. Family requested transfer to [facility]. Patient will stay till at least Thursday Patient seen, discussed, and reviewed with attending Dr. Nancy Sales - PGY-1 <Anne Marie Cruz - Last Filed: 06/27/17 17:50> Objective - Vital Signs/Intake and Output Vital Signs (last 24 hours): Temp Pulse Resp BP Pulse Ox 97.7 F 112 H 11 L 90/49 L 100 06/27/17 00:00 06/27/17 16:30 06/27/17 16:30 06/27/17 16:10 06/27/17 16:30 Intake and Output: 06/27/17 06/27/17 06:59 18:59 Intake Total 300 Output Total 480 Balance -180 - Medications Medications: Current Medications Carvedilol (Coreg) 6.25 mg PO BID [facility] Last Admin: 06/27/17 09:13 Dose: 6.25 mg Enoxaparin Sodium (Lovenox) 110 mg SC Q12 MOO PRN Reason: Protocol Last Admin: 06/27/17 09:16 Dose: 110 mg Famotidine (Pepcid) 40 mg PO BID [facility] Last Admin: 06/27/17 09:12 Dose: 40 mg Folic Acid (Folic Acid) 1 mg PO DAILY [facility] Last Admin: 06/27/17 09:12 Dose: 1 mg Furosemide (Lasix) 40 mg IVP BID PRN PRN Reason: Swelling Milrinone Lactate/Dextrose (Primacor 20mg/100ml D5w) 100 mls @ 12.145 mls/hr IV .Q8H15M PRN; Protocol; 0.375 MCG/KG/MIN PRN Reason: TITRATE PER MD ORDER Last Admin: 06/27/17 10:06 Dose: 0.375 mcg/kg/min, 12.145 mls/hr Lorazepam (Ativan) 1 mg IVP Q4H PRN PRN Reason: WITHDRAWAL or Agitation Lorazepam (Ativan) 1 mg IVP Q6H MOO PRN Reason: Protocol Last Admin: 06/27/17 13:40 Dose: 1 mg Ondansetron HCl (Zofran Inj) 4 mg IVP Q6H PRN PRN Reason: Nausea/Vomiting Spironolactone (Aldactone) 25 mg PO BID [facility] Last Admin: 06/27/17 09:12 Dose: 25 mg Thiamine HCl (Vitamin B1 Tab) 100 mg PO DAILY [facility] Last Admin: 06/27/17 09:13 Dose: 100 mg Zinc Sulfate (Zinc Sulfate 220 Mg Cap) 220 mg PO DAILY [facility] Last Admin: 06/27/17 09:13 Dose: 220 mg - Labs Labs: 06/27/17 05:15 06/27/17 05:15 PT 15.3 SECONDS (9.4-12.5) H 06/27/17 05:15 INR 1.38 (0.93-1.08) H 06/27/17 05:15 Attending/Attestation - Attestation I have personally seen and examined this patient.: Yes I have fully participated in the care of the patient.: Yes I have reviewed all pertinent clinical information, including history, physical exam and plan: Yes Notes (Text): 06/27/17 17:17 Patient was seen and examined with medical supply technician. 37 year old male with PMHx of heavy alcohol abuse was admitted with SOB, and leg edema, He was found to have new CHF ,Echo showed dilated cardiomyopathy on ECHO EF < 10,He on IV Lasix, Milrinone infusion, coreg and aldactone for CHF.Cardiology is planning for cardiac cath on Thursday. At patient request, case Patient was discussed with cardiology at [facility] and later on with at [facility].Patient is not a candidate for heart transplant at this time but has been accepted for CHF management at this time, pending insurance clearance, likely will happen on Thursday.Patient family was informed about the discussion. We will continue monitoring for alcohol withdrawal. Hyponatremia is from CHF , fluid overload, improving. Management plan was discussed in detail with patient Education was provided. 06/27/17 17:46"
--- NOTE | 2017-06-27 14:34 | CARD ---
APPROVED REPORT EKG Measurement Heart [id number] CT 120P [id number] <Conclusion> Sinus tachycardia Nonspecific T wave abnormality Abnormal ECG
[2017-06-27] MEDS ORDERED: Potassium Chloride 20 mEq ER Tab PO ONE (16:46)
[2017-06-28] MEDS: Milrinone 20mg/100ml D5W 100 ML IV PRN ×3 (01:06→18:03)
[2017-06-28 06:06] LABS: BASO # 0.04 K/mm3 (0.0-2.0); BASO % 0.8 % (0.0-3.0); EOS # 0.1 (0.0-0.7); EOS % 2.1 % (1.5-5.0); GRAN # 3.02 (1.4-6.5); GRAN % 64.2 % (50.0-68.0); HEMOGLOBIN 12.1 g/dL (14.0-18.0); LYMPH # 0.9 (1.2-3.4); LYMPH % 18.9 % (22.0-35.0); MEAN CELL VOLUME 110.1 fl (80.0-105.0); MEAN CORPUSCULAR HGB CONC 31.8 g/dl (31.0-37.0); MEAN PLATELET VOLUME 10.3 fl (7.0-11.0); MONO # 0.7 (0.1-0.6); RBC 3.46 10^6/uL (3.5-6.1); RED CELL DISTRIBUTION WIDTH 13.6 % (11.5-14.5); WHITE BLOOD COUNT 4.7 10^3/ul (4.5-11.0)
[2017-06-28 06:15] LABS: INR 1.37 (0.93-1.08); PROTHROMBIN TIME 15.2 SECONDS (9.4-12.5)
[2017-06-28 06:33] LABS: ALB/GLOB RATIO 1.1 (1.1-1.8); ALBUMIN 2.8 g/dL (3.0-4.8); ALT/SGPT 87 U/L (7-56); AST/SGOT 73 U/L (17-59); BLOOD UREA NITROGEN 6 mg/dL (7-21); CALCIUM 8.9 mg/dL (8.4-10.5); GFR AFRICAN-AMERICAN > 60; GFR NON-AFRICAN AMERICAN > 60; MAGNESIUM 1.6 mg/dL (1.7-2.2)
[2017-06-28] MEDS ORDERED: Magnesium Sulfate 1 gm in D5W 1 GM/100 ML BAG IVPB ONE (07:56)
[2017-06-28] MEDS: Enoxaparin 120 mg Syringe SC SCH ×2 (09:01→22:30)
--- NOTE | 2017-06-28 09:29 | PN ---
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 States that he feels better today. He still has slight tachycardia, but no chest pain. No abdominal pain. No fever, chills, nausea, or vomiting. No increased shortness of breath, cough, or wheezing. The patient is still on Primacor drip. PHYSICAL EXAMINATION: VITAL SIGNS: Note that his temperature is 98.7, his pulse is 115, respirations are 18, blood pressure is 92/56, and O2 saturation is 98%. HEENT: Head is atraumatic, normocephalic. Eyes, reactive to light. Ears, nose, and throat seemed to be within normal limits. NECK: Supple. No JVD. No thyroid enlargement. No lymph nodes. HEART: Regular rate and rhythm. Normal S1 and S2. Slightly tachycardic. LUNGS: Reveal mild decreased breath sounds at the bases. ABDOMEN: Soft. Decreased bowel sounds. GENITALIA: Deferred. RECTAL: Deferred. MUSCULOSKELETAL: No joint deformities. EXTREMITIES: Reveal 1+ lower extremity edema. NEUROLOGIC: He seemed to be grossly intact. LABORATORY DATA: As far as his laboratories are concerned, his white count is up 4.7, hemoglobin is 12.1, hematocrit 38.1 with platelets of 161,000. The patient's sodium is 134, potassium is 3.9, chloride 98, CO2 of 30 with a BUN of 6, creatinine of 0.6, and a glucose of 86. IMPRESSION: As far as my impression, this patient has cardiomyopathy and congestive heart failure with ejection fraction of approximately 15%. The patient has tachycardia and has been started on Primacor. He has history of alcohol abuse, alcoholic liver disease, alcoholic cardiomyopathy, and anasarca. PLAN: We will continue with diuretics of spironolactone and we will give the patient Lasix as well. He is on Lovenox and as stated above milrinone. The patient is getting thiamine, zinc, and Zofran for any nauseousness. We will continue to treat aggressively along with the other consultants and the primary care doctor. Luis Barone MD [facility] # [id number]
--- NOTE | 2017-06-28 10:00 | CP.PCM.PN ---
"Addendum entered and electronically signed by Yo Sales DO 06/28/17 10:54: Oliguria: Ordered Bedside Bladder Scan Original Note: <Yo Sales - Last Filed: 06/28/17 10:44> Subjective - Date & Time of Evaluation Date of Evaluation: 06/28/17 Time of Evaluation: 09:54 - Subjective Subjective: Patient has been seen and examined. No overnight reported. Patient denies any chest pain, palpitations, SOB, LH, abdominal pain, or changes in bowel habits. Per nurse, patient has only urinated 125cc's of tea colored urine. He denies any dysuria or subprapubic tenderness. Objective - Vital Signs/Intake and Output Vital Signs (last 24 hours): Temp Pulse Resp BP Pulse Ox 98.7 F 120 H 18 115/75 93 L 06/28/17 01:29 06/28/17 09:17 06/28/17 01:03 06/28/17 09:17 06/28/17 01:10 Intake and Output: 06/28/17 06/28/17 06:59 18:59 Intake Total 100 100 Balance 100 100 - Medications Medications: Current Medications Carvedilol (Coreg) 6.25 mg PO BID [facility] Last Admin: 06/27/17 17:17 Dose: 6.25 mg Enoxaparin Sodium (Lovenox) 110 mg SC Q12 MOO PRN Reason: Protocol Last Admin: 06/28/17 09:01 Dose: 110 mg Famotidine (Pepcid) 40 mg PO BID [facility] Last Admin: 06/28/17 09:00 Dose: 40 mg Folic Acid (Folic Acid) 1 mg PO DAILY [facility] Last Admin: 06/28/17 09:00 Dose: 1 mg Furosemide (Lasix) 40 mg IVP BID PRN PRN Reason: Swelling Milrinone Lactate/Dextrose (Primacor 20mg/100ml D5w) 100 mls @ 12.145 mls/hr IV .Q8H15M PRN; Protocol; 0.375 MCG/KG/MIN PRN Reason: TITRATE PER MD ORDER Last Admin: 06/28/17 09:17 Dose: 0.37 mcg/kg/min, 12.1 mls/hr Lorazepam (Ativan) 1 mg IVP Q4H PRN PRN Reason: WITHDRAWAL or Agitation Last Admin: 06/27/17 21:03 Dose: 1 mg Lorazepam (Ativan) 1 mg IVP Q6H MOO PRN Reason: Protocol Last Admin: 06/28/17 08:54 Dose: 1 mg Ondansetron HCl (Zofran Inj) 4 mg IVP Q6H PRN PRN Reason: Nausea/Vomiting Spironolactone (Aldactone) 25 mg PO BID [facility] Last Admin: 06/28/17 09:00 Dose: 25 mg Thiamine HCl (Vitamin B1 Tab) 100 mg PO DAILY [facility] Last Admin: 06/28/17 09:00 Dose: 100 mg Zinc Sulfate (Zinc Sulfate 220 Mg Cap) 220 mg PO DAILY [facility] Last Admin: 06/28/17 09:00 Dose: 220 mg - Labs Labs: 06/28/17 05:00 06/28/17 05:00 PT 15.2 SECONDS (9.4-12.5) H 06/28/17 05:00 INR 1.37 (0.93-1.08) H 06/28/17 05:00 - Additional Findings Additional findings: - Constitutional Appears: Non-toxic, No Acute Distress - Head Exam Head Exam: ATRAUMATIC, NORMOCEPHALIC - Eye Exam Eye Exam: EOMI, Normal appearance, PERRL, Scleral icterus. absent: Periorbital swelling - ENT Exam ENT Exam: Mucous Membranes Dry - Neck Exam Neck exam: Positive for: Normal Inspection - Respiratory Exam Respiratory Exam: Rales (faint, bibasilar - improved), NORMAL BREATHING PATTERN - Cardiovascular Exam Cardiovascular Exam: Tachycardia, REGULAR RHYTHM, +S1, +S2 - GI/Abdominal Exam GI & Abdominal Exam: Distended, Normal Bowel Sounds, Soft. absent: Firm, Guarding, Organomegaly, Rebound, Rigid, Tenderness Additional comments: No shifting dullness. No fluid wave. - Extremities Exam Extremities exam: Negative for: calf tenderness Additional comments: 3+ pitting edema to knees (Improved) - Neurological Exam Neurological exam: Alert, CN II-XII Intact, Oriented x3 Additional comments: Mild tremor in outstretched hands (improved) No asterixis. No confusion. - Psychiatric Exam Psychiatric exam: Normal Affect, Normal Mood Additional comments: Normal thought processes. AAOx3 - Skin Skin Exam: Dry, Intact Additional comments: Assessment and Plan - Assessment and Plan (Free Text) Assessment: 37 yo M with no significant PMH presents complaining of worsening edema and shortness of breath, for the past month; reports chronic alcohol abuse. Plan: Decompensated alcoholic liver disease - MELD 21 on admission - Monitor daily PT/INR - trend LFTs (Downtrending) - Abd US (06/26/17): Hepatomegaly, steatosis, no evidence of free fluid in the abdomen. - Hep Panel: NEGATIVE - B12 and Folate: WNL - Cont. Lasix 40 IVP BID PRN and Aldactone 25 BID MOO, as below - Cont. Zinc supplement - GI consult requested, F/U with Recs Congestive heart failure - BNP 5480 on Admission | Troponins - NEGATIVE x 3 - EKG (06/27) - Sinus Tach/ non-specific T wave abnormality - CXR (06/27) - Mild pulmonary vascular congestive changes with what appear to represent mild b/l lower lobe alveolar-type infiltrates - ECHO (06/26): 4 chamber enlargement Severe LV hypokinesis Mild AI, MR, and TR Mild Pulm HTN Findings c/w Severe Dilated Cardiomyopathy (EF- 7.5%) - Lasix 40 IVP BID PRN and Aldactone 25 BID MOO - Requested cardiology consult (Dr. Hernandez), appreciate recs +Milrinone Drip 0.375 mcg/kg/min +Coreg 6.25 PO BID Alcohol abuse/withdrawal - Alcohol level in ER 127 - Start CIWA protocol - Ativan 1 IVP Q6H PRN, Ativan 1mg IVP Q8H MOO - B12, Folate, Multivitamins - Seizure/Fall precautions Hypervolemic Hyponatremia (Resolved) - Na 127 on admission; patient clinically volume overloaded - Likely 2/2 CHF vs cirrhosis - Urine Osm (06/26) - Low @ 169 | Urine Electrolytes - WNL - Restrict free water GI PPx: Pepcid DVT PPx: Heparin Dispo: Transferred to ICU yesterday. Family requested transfer to [facility]. Patient will stay till at least Thursday Patient seen, discussed, and reviewed with attending Dr. Nancy Sales - PGY-1 <Michel Lund - Last Filed: 06/28/17 14:45> Objective - Vital Signs/Intake and Output Vital Signs (last 24 hours): Temp Pulse Resp BP Pulse Ox 98.7 F 120 H 18 115/75 93 L 06/28/17 01:29 06/28/17 09:17 06/28/17 01:03 06/28/17 09:17 06/28/17 01:10 Intake and Output: 06/28/17 06/28/17 06:59 18:59 Intake Total 100 100 Balance 100 100 - Medications Medications: Current Medications Carvedilol (Coreg) 6.25 mg PO BID [facility] Last Admin: 06/27/17 17:17 Dose: 6.25 mg Enoxaparin Sodium (Lovenox) 110 mg SC Q12 MOO PRN Reason: Protocol Last Admin: 06/28/17 09:01 Dose: 110 mg Folic Acid (Folic Acid) 1 mg PO DAILY [facility] Last Admin: 06/28/17 09:00 Dose: 1 mg Furosemide (Lasix) 40 mg IVP BID PRN PRN Reason: Swelling Milrinone Lactate/Dextrose (Primacor 20mg/100ml D5w) 100 mls @ 12.145 mls/hr IV .Q8H15M PRN; Protocol; 0.375 MCG/KG/MIN PRN Reason: TITRATE PER MD ORDER Last Admin: 06/28/17 09:17 Dose: 0.37 mcg/kg/min, 12.1 mls/hr Lorazepam (Ativan) 1 mg PO Q8H MOO PRN Reason: Protocol Lorazepam (Ativan) 1 mg IVP Q6H PRN PRN Reason: WITHDRAWAL or Agitation Ondansetron HCl (Zofran Inj) 4 mg IVP Q6H PRN PRN Reason: Nausea/Vomiting Spironolactone (Aldactone) 25 mg PO BID [facility] Last Admin: 06/28/17 09:00 Dose: 25 mg Thiamine HCl (Vitamin B1 Tab) 100 mg PO DAILY [facility] Last Admin: 06/28/17 09:00 Dose: 100 mg Zinc Sulfate (Zinc Sulfate 220 Mg Cap) 220 mg PO DAILY [facility] Last Admin: 06/28/17 09:00 Dose: 220 mg - Labs Labs: 06/28/17 05:00 06/28/17 05:00 PT 15.2 SECONDS (9.4-12.5) H 06/28/17 05:00 INR 1.37 (0.93-1.08) H 06/28/17 05:00 Attending/Attestation - Attestation I have personally seen and examined this patient.: Yes I have fully participated in the care of the patient.: Yes I have reviewed all pertinent clinical information, including history, physical exam and plan: Yes Notes (Text): 06/28/17 14:40 37 year old male with past medical history of alcohol abuse who presented with dyspnea and LE edemia. He was found to have severe dilated cardiomyopathy, likely alcoholic. He is being followed by cardiology. He is on iv lasix, spironalactone, milrinone infusion, lovenox and coreg. Cardiology was planning for cardiac cath on Thursday. However patient is requesting to be transferred to [facility]. He was counselled on alcohol abstinence. Will replete and repeat his lytes. Transaminitis likely due to ETOH abuse; will monitor. Michel Lund MD Hospitalist."
--- NOTE | 2017-06-28 13:28 | PN ---
DATE: 06/28/2017 CARDIOLOGY FOLLOWUP SUBJECTIVE: The patient's breathing is better and tolerating IV milrinone. PHYSICAL EXAMINATION: VITAL SIGNS: Blood pressure 115/75 and heart rate varies between 115 and 120. NECK: Negative JVD. LUNGS: Decreased breath sounds bilaterally. HEART: Reveal S1 and S2. EXTREMITIES: Decreasing edema. LABORATORY DATA: BUN and creatinine is 6 and 0.6, potassium is 3.9, and magnesium is 1.6. Hemoglobin is 12. IMPRESSION: 1. Acute systolic congestive heart failure. 2. Severe dilated cardiomyopathy, likely secondary to alcohol. 3. Need to rule out coronary artery disease given the patient's family history. 4. Pedal edema. 5. Dyspnea has improved. PLAN: Given these findings, we will continue his IV milrinone. We will continue the anticoagulation and replace the magnesium. At the patient's request, the patient is scheduled to be transferred to [facility]. We will cancel his catheterization scheduled for Thursday. We will continue medications until the patient can be transferred to [place]. Daniel Hernandez MD
[2017-06-29] MEDS: Milrinone 20mg/100ml D5W 100 ML IV PRN (02:59)
[2017-06-29 06:06] LABS: BASO # 0.03 K/mm3 (0.0-2.0); BASO % 0.7 % (0.0-3.0); EOS # 0.1 (0.0-0.7); EOS % 2.3 % (1.5-5.0); GRAN # 2.32 (1.4-6.5); GRAN % 52.3 % (50.0-68.0); HEMOGLOBIN 13.3 g/dL (14.0-18.0); LYMPH # 1.4 (1.2-3.4); LYMPH % 31.2 % (22.0-35.0); MEAN CELL VOLUME 110.9 fl (80.0-105.0); MEAN CORPUSCULAR HEMOGLOBIN 35.4 pg (25.0-35.0); MEAN CORPUSCULAR HGB CONC 31.9 g/dl (31.0-37.0); MEAN PLATELET VOLUME 10.6 fl (7.0-11.0); MONO # 0.6 (0.1-0.6); MONO % 13.5 % (1.0-6.0); RBC 3.76 10^6/uL (3.5-6.1); RED CELL DISTRIBUTION WIDTH 13.9 % (11.5-14.5); WHITE BLOOD COUNT 4.4 10^3/ul (4.5-11.0)
[2017-06-29 06:19] LABS: INR 1.2 (0.93-1.08); PROTHROMBIN TIME 13.3 SECONDS (9.4-12.5)
[2017-06-29 06:20] LABS: ALB/GLOB RATIO 1.2 (1.1-1.8); ALBUMIN 3.3 g/dL (3.0-4.8); ALT/SGPT 88 U/L (7-56); AST/SGOT 69 U/L (17-59); BLOOD UREA NITROGEN 6 mg/dL (7-21); CALCIUM 9.2 mg/dL (8.4-10.5); GFR AFRICAN-AMERICAN > 60; GFR NON-AFRICAN AMERICAN > 60; MAGNESIUM 1.7 mg/dL (1.7-2.2)
--- NOTE | 2017-06-29 08:38 | CP.PCM.PN ---
"<Alea Castellano - Last Filed: 06/29/17 15:37> Subjective - Date & Time of Evaluation Date of Evaluation: 06/29/17 Time of Evaluation: 08:35 - Subjective Subjective: PGY-2 [place] note for hospitalist service Patient seen and examined at bedside in icu. No acute distress. Nurse reports patient continues to withdraw, no acute events overnight. Patient is sleeping comfortably, family member at bedside. Patient has no complaints, he denies chest pain, sob, abd pain, n/v, diarrhea. Per family patient is pending transfer. Objective - Vital Signs/Intake and Output Vital Signs (last 24 hours): Temp Pulse Resp BP Pulse Ox 98.2 F 107 H 24 104/70 98 06/29/17 04:00 06/29/17 05:26 06/29/17 05:10 06/29/17 05:10 06/29/17 05:10 Intake and Output: 06/29/17 06/29/17 06:59 18:59 Intake Total 428 Output Total 400 Balance 28 - Medications Medications: Current Medications Carvedilol (Coreg) 6.25 mg PO BID [facility] Last Admin: 06/28/17 17:58 Dose: 6.25 mg Enoxaparin Sodium (Lovenox) 110 mg SC Q12 MOO PRN Reason: Protocol Last Admin: 06/28/17 22:30 Dose: 110 mg Folic Acid (Folic Acid) 1 mg PO DAILY [facility] Last Admin: 06/28/17 09:00 Dose: 1 mg Furosemide (Lasix) 40 mg IVP BID PRN PRN Reason: Swelling Milrinone Lactate/Dextrose (Primacor 20mg/100ml D5w) 100 mls @ 12.145 mls/hr IV .Q8H15M PRN; Protocol; 0.375 MCG/KG/MIN PRN Reason: TITRATE PER MD ORDER Last Titration: 06/29/17 03:05 Dose: 0.37 mcg/kg/min, 12.1 mls/hr Lorazepam (Ativan) 1 mg PO Q8H MOO PRN Reason: Protocol Last Admin: 06/29/17 02:58 Dose: 1 mg Lorazepam (Ativan) 1 mg IVP Q6H PRN PRN Reason: WITHDRAWAL or Agitation Ondansetron HCl (Zofran Inj) 4 mg IVP Q6H PRN PRN Reason: Nausea/Vomiting Spironolactone (Aldactone) 25 mg PO BID [facility] Last Admin: 06/28/17 18:00 Dose: 25 mg Thiamine HCl (Vitamin B1 Tab) 100 mg PO DAILY [facility] Last Admin: 06/28/17 09:00 Dose: 100 mg Zinc Sulfate (Zinc Sulfate 220 Mg Cap) 220 mg PO DAILY [facility] Last Admin: 06/28/17 09:00 Dose: 220 mg - Labs Labs: 06/29/17 05:00 06/29/17 05:00 PT 13.3 SECONDS (9.4-12.5) H 06/29/17 05:00 INR 1.20 (0.93-1.08) H 06/29/17 05:00 - Constitutional Appears: No Acute Distress - Head Exam Head Exam: ATRAUMATIC, NORMAL INSPECTION, NORMOCEPHALIC - Eye Exam Eye Exam: EOMI, Normal appearance - ENT Exam ENT Exam: Mucous Membranes Moist - Respiratory Exam Respiratory Exam: Clear to Ausculation Bilateral, NORMAL BREATHING PATTERN. absent: Rhonchi, Wheezes, Respiratory Distress - Cardiovascular Exam Cardiovascular Exam: Tachycardia, REGULAR RHYTHM, +S1, +S2. absent: Murmur - GI/Abdominal Exam GI & Abdominal Exam: Normal Bowel Sounds. absent: Distended, Soft, Tenderness - Extremities Exam Additional comments: +3 pitting edema bilateral lower enormities. - Neurological Exam Neurological Exam: Alert, Awake, Oriented x3 - Skin Skin Exam: Dry, Intact, Normal Color, Warm Assessment and Plan - Assessment and Plan (Free Text) Assessment: 37 yo M with no significant PMH presents complaining of worsening edema and shortness of breath secondary to dilated cardiomyopathy with alcoholic liver Plan: 1. Decompensated alcoholic liver disease - MELD 21 on admission - cont to monitor PT/INR - Downtrending LFTs - Abd US (06/26/17): Hepatomegaly, steatosis, no evidence of free fluid in the abdomen. - Hep Panel: NEGATIVE - B12 and Folate: WNL - Cont. Lasix 40 IVP BID PRN and Aldactone 25 BID [facility], - Cont. Zinc supplement - GI consult requested, F/U with Recs 2. dilated cardiolomyopathy - BNP 5480 on Admission - Troponins - NEGATIVE x 3 - EKG (06/27) - Sinus Tach/ non-specific T wave abnormality - CXR (06/27) - Mild pulmonary vascular congestive changes with what appear to represent mild b/l lower lobe alveolar-type infiltrates - ECHO (06/26) showed 4 chamber enlargement, Severe LV hypokinesis, Mild AI, MR , and TR, Mild Pulm HTN, Findings c/w Severe Dilated Cardiomyopathy (EF- 7.5%) - Lasix 40 IVP BID PRN to avoid hypotension - cont Aldactone 25 BID [facility] - Requested cardiology consult (Dr. Hernandez), recommends Milrinone Drip 0.375 mcg/ kg/min and Coreg 6.25 PO BID - cardiology recommended cath however patient would like to be transferred to [facility]. 2. Alcohol abuse/withdrawal - Alcohol level in ER 127 - Start CIWA protocol - Ativan 1 IVP Q6H PRN, Ativan 1mg IVP Q8H MOO - B12, Folate, Multivitamins - Seizure/Fall precautions 3. Hypervolemic Hyponatremia (Resolved) - Na 127 on admission; patient clinically volume overloaded - Likely 2/2 CHF vs cirrhosis - Urine Osm (06/26) - Low @ 169 | Urine Electrolytes - WNL - Restrict free water GI PPx: Pepcid DVT PPx: Heparin Dispo: Transferred to ICU yesterday. Family requested transfer to [facility]. Patient will stay till at least Thursday Patient seen, discussed, and reviewed with attending <Michel Lund - Last Filed: 06/29/17 16:12> Objective - Vital Signs/Intake and Output Vital Signs (last 24 hours): Temp Pulse Resp BP Pulse Ox 98.2 F 122 H 26 H 126/68 97 06/29/17 04:00 06/29/17 12:47 06/29/17 12:47 06/29/17 12:11 06/29/17 12:30 Intake and Output: 06/29/17 06/29/17 06:59 18:59 Intake Total 428 Output Total 400 Balance 28 - Medications Medications: Current Medications Carvedilol (Coreg) 6.25 mg PO BID [facility] Last Admin: 06/29/17 10:18 Dose: 6.25 mg Enoxaparin Sodium (Lovenox) 110 mg SC Q12 [facility] PRN Reason: Protocol Last Admin: 06/29/17 10:22 Dose: 110 mg Folic Acid (Folic Acid) 1 mg PO DAILY [facility] Last Admin: 06/29/17 10:17 Dose: 1 mg Furosemide (Lasix) 40 mg IVP BID PRN PRN Reason: Swelling Lorazepam (Ativan) 1 mg PO Q8H MOO PRN Reason: Protocol Last Admin: 06/29/17 11:37 Dose: 1 mg Lorazepam (Ativan) 1 mg IVP Q6H PRN PRN Reason: WITHDRAWAL or Agitation Last Admin: 06/29/17 11:49 Dose: 1 mg Ondansetron HCl (Zofran Inj) 4 mg IVP Q6H PRN PRN Reason: Nausea/Vomiting Spironolactone (Aldactone) 25 mg PO BID [facility] Last Admin: 06/29/17 10:18 Dose: 25 mg Thiamine HCl (Vitamin B1 Tab) 100 mg PO DAILY [facility] Last Admin: 06/29/17 10:17 Dose: 100 mg Zinc Sulfate (Zinc Sulfate 220 Mg Cap) 220 mg PO DAILY [facility] Last Admin: 06/29/17 10:18 Dose: 220 mg - Labs Labs: 06/29/17 05:00 06/29/17 05:00 PT 13.3 SECONDS (9.4-12.5) H 06/29/17 05:00 INR 1.20 (0.93-1.08) H 06/29/17 05:00 Attending/Attestation - Attestation I have personally seen and examined this patient.: Yes I have fully participated in the care of the patient.: Yes I have reviewed all pertinent clinical information, including history, physical exam and plan: Yes Notes (Text): 06/29/17 16:10 37 year old male with past medical history of alcohol abuse who presented with dyspnea and LE edema. He was found to have severe dilated cardiomyopathy, likely alcoholic. He was seen by cardiology and started on iv lasix, spironalactone, milrinone infusion, lovenox and coreg. Plan is for possible transfer to [facility] tomorrow as per family request. He was counselled on alcohol abstinence. Monitor for withdrawal symptoms. Transaminitis likely due to ETOH abuse; will continue to monitor. Michel Lund MD Hospitalist."
--- NOTE | 2017-06-29 10:05 | CP.PCM.PN ---
Subjective - Date & Time of Evaluation Date of Evaluation: 06/29/17 Time of Evaluation: 08:00 - Subjective Subjective: Patient seen and examined, reports to be doing well. Reports SOB is much improved. Objective - Vital Signs/Intake and Output Vital Signs (last 24 hours): Temp Pulse Resp BP Pulse Ox 98.2 F 107 H 24 104/70 98 06/29/17 04:00 06/29/17 05:26 06/29/17 05:10 06/29/17 05:10 06/29/17 05:10 Intake and Output: 06/29/17 06/29/17 06:59 18:59 Intake Total 428 Output Total 400 Balance 28 - Medications Medications: Current Medications Carvedilol (Coreg) 6.25 mg PO BID [facility] Last Admin: 06/28/17 17:58 Dose: 6.25 mg Enoxaparin Sodium (Lovenox) 110 mg SC Q12 MOO PRN Reason: Protocol Last Admin: 06/28/17 22:30 Dose: 110 mg Folic Acid (Folic Acid) 1 mg PO DAILY [facility] Last Admin: 06/28/17 09:00 Dose: 1 mg Furosemide (Lasix) 40 mg IVP BID PRN PRN Reason: Swelling Milrinone Lactate/Dextrose (Primacor 20mg/100ml D5w) 100 mls @ 12.145 mls/hr IV .Q8H15M PRN; Protocol; 0.375 MCG/KG/MIN PRN Reason: TITRATE PER MD ORDER Last Titration: 06/29/17 03:05 Dose: 0.37 mcg/kg/min, 12.1 mls/hr Lorazepam (Ativan) 1 mg PO Q8H MOO PRN Reason: Protocol Last Admin: 06/29/17 02:58 Dose: 1 mg Lorazepam (Ativan) 1 mg IVP Q6H PRN PRN Reason: WITHDRAWAL or Agitation Ondansetron HCl (Zofran Inj) 4 mg IVP Q6H PRN PRN Reason: Nausea/Vomiting Spironolactone (Aldactone) 25 mg PO BID [facility] Last Admin: 06/28/17 18:00 Dose: 25 mg Thiamine HCl (Vitamin B1 Tab) 100 mg PO DAILY [facility] Last Admin: 06/28/17 09:00 Dose: 100 mg Zinc Sulfate (Zinc Sulfate 220 Mg Cap) 220 mg PO DAILY [facility] Last Admin: 06/28/17 09:00 Dose: 220 mg - Labs Labs: 06/29/17 05:00 06/29/17 05:00 PT 13.3 SECONDS (9.4-12.5) H 06/29/17 05:00 INR 1.20 (0.93-1.08) H 06/29/17 05:00 - Constitutional Appears: Well, Non-toxic, No Acute Distress - Eye Exam Eye Exam: Normal appearance - ENT Exam ENT Exam: Mucous Membranes Moist - Respiratory Exam Respiratory Exam: Clear to Ausculation Bilateral, NORMAL BREATHING PATTERN - Cardiovascular Exam Cardiovascular Exam: REGULAR RHYTHM, +S1, +S2 - GI/Abdominal Exam GI & Abdominal Exam: Soft, Normal Bowel Sounds - Extremities Exam Extremities Exam: Pedal Edema - Neurological Exam Neurological Exam: Alert, Awake - Psychiatric Exam Psychiatric exam: Normal Affect - Skin Skin Exam: Normal Color, Warm Assessment and Plan - Assessment and Plan (Free Text) Assessment: 37yo male a/w decompebsated systolic chf. Acute Decompesanted CHF exacerbation EtOH abuse SOB - currently afebrile, HD stable, comfortable in NAD, sat 99% on 2LNC - good UOP with IV diuresis - awaiting transfer to [place] Recommend: - supp o2 as needed - follow up cultures - BP control - cont with Primacor - IV Lasix - consider holding BB - Cont with Spironolactone - Monitor I/Os, daily weights, low salt diet - [facility] protocol - Thiamine, Folic Acid, MVT - GI ppx, PPI - DVT ppx, Lovenox - Stable, monitor in CCU, awaiting transfer to [place]
[2017-06-29] MEDS: Enoxaparin 120 mg Syringe SC SCH ×2 (10:22→22:40)
--- NOTE | 2017-06-29 13:05 | PN ---
DATE: 06/29/2017 CARDIOLOGY FOLLOWUP NOTE SUBJECTIVE: The patient's breathing is much improved. OBJECTIVE: VITAL SIGNS: Blood pressure is 104/70, heart rate is 107, sinus tachycardia. NECK: Negative JVD. LUNGS: Crackles in the right base, clear on the left. HEART: Reveal S1, S2. EXTREMITIES: Decreased edema. LABORATORY DATA: Hemoglobin is 13.3. Chemistries, BUN and creatinine are 6 and 0.6, potassium is 4.0, and magnesium is 1.7. IMPRESSION: 1. Status post acute systolic congestive heart failure. 2. Severe dilated cardiomyopathy, likely due to alcoholism. 3. Alcoholism. 4. Need to rule out coronary artery disease given his strong family history for coronary artery disease. PLAN: Given these findings, we will discontinue his milrinone today. We will see whether the patient's CHF has responded well to medical treatment. At the family's insistence, the patient is being transferred to [facility] for further care. They seemed to think that he needs to be evaluated for heart transplantation, which I told them that he is nowhere near at that point yet. However, at their insistence, they have called [place] to make arrangements for transfer. We will cancel his cardiac catheterization in the morning. We will help them have the patient sent to [place] once the bed is ready. Daniel Hernandez MD
[2017-06-30 07:20] LABS: BASO # 0.05 K/mm3 (0.0-2.0); BASO % 1.1 % (0.0-3.0); EOS # 0.1 (0.0-0.7); EOS % 1.9 % (1.5-5.0); GRAN # 2.52 (1.4-6.5); GRAN % 53.3 % (50.0-68.0); HEMOGLOBIN 13.8 g/dL (14.0-18.0); LYMPH # 1.3 (1.2-3.4); LYMPH % 26.5 % (22.0-35.0); MEAN CELL VOLUME 110.8 fl (80.0-105.0); MEAN CORPUSCULAR HEMOGLOBIN 35.4 pg (25.0-35.0); MEAN CORPUSCULAR HGB CONC 31.9 g/dl (31.0-37.0); MEAN PLATELET VOLUME 10.9 fl (7.0-11.0); MONO # 0.8 (0.1-0.6); MONO % 17.2 % (1.0-6.0); RBC 3.9 10^6/uL (3.5-6.1); RED CELL DISTRIBUTION WIDTH 13.9 % (11.5-14.5); WHITE BLOOD COUNT 4.7 10^3/ul (4.5-11.0)
[2017-06-30 07:33] LABS: INR 1.24 (0.93-1.08); PROTHROMBIN TIME 13.7 SECONDS (9.4-12.5)
[2017-06-30 07:40] LABS: ALB/GLOB RATIO 1.2 (1.1-1.8); ALBUMIN 3.1 g/dL (3.0-4.8); ALT/SGPT 79 U/L (7-56); AST/SGOT 67 U/L (17-59); BLOOD UREA NITROGEN 8 mg/dL (7-21); CALCIUM 8.8 mg/dL (8.4-10.5); GFR AFRICAN-AMERICAN > 60; GFR NON-AFRICAN AMERICAN > 60; MAGNESIUM 1.6 mg/dL (1.7-2.2)
--- NOTE | 2017-06-30 08:07 | CON ---
DATE: 06/27/2017 HISTORY OF PRESENT ILLNESS: I saw Ms. Kevan De Oliveira this morning. He is a 37-year-old male with complaints of bilateral leg swelling with a swelling of the lower part of the abdomen, increased fatigue, shortness of breath, and weight gain over the past 4 to 5 weeks. The patient is being complaining about walking with increased dyspnea. He is still walking upstairs as well. He has no complaints of hematemesis, rectal bleeding, nausea, vomiting, or abdominal pain. The patient denies any significant past medical history from a GI standpoint. I understand there is inflammatory bowel disease component in his immediate family history as well as hypertension. He indicates that he drinks at least 6 to 8 alcoholic beverages for 6 days per week. Apparently, he has no drug use. This is the first hospital admission for this patient. PHYSICAL EXAMINATION: VITAL SIGNS: I reviewed this patient's vital signs. HEENT: Significant for being normocephalic and atraumatic. Pupils are reactive to light. LUNGS: Exhibited decreased breath sounds in its absolute bases. There were bilateral rales, also some expiratory wheezes noted bilaterally. HEART: Reveals a regular rhythm. ABDOMEN: Mildly distended. There is no pain elicited in any quadrant. I cannot elicit any shifting dullness on exam. EXTREMITIES: Evaluation of extremities indicate some fluid retention in the legs bilaterally. LABORATORY DATA: I reviewed this patient's laboratory data. White count 5.5 with an H and H of 13 and 39, platelet count 160. His INR indicates a level of 1.34. Chemistry evaluation indicates normal BUN and creatinine with a low magnesium, bilirubin 1.9 with an AST and ALT ratio of 108/118. His B-natriuretic peptide level was 5480. His hepatitis serology was negative. I reviewed this patient's radiology. Note that his echo revealed some thickening of the tricuspid valves. There is mild tricuspid regurgitation as well as mild pulmonary hypertension and no pericardial effusion. He does have severe left ventricular hypokinesis indicating severe dilated cardiomyopathy. Abdominal ultrasound reveals a mildly distended gallbladder with no stones, no thickening of the gallbladder wall, does have indications of hepatic steatosis. Spleen is normal in size and contour. ASSESSMENT AND PLAN: This is a 37-year-old male with a history of severe and heavy alcohol intake, with complaints of severe shortness of breath and dyspnea, was found to have a dilated cardiomyopathy based on echo criteria. In view of the findings and his clinical history when asked to presume, at least one of the main etiology for the patient's cardiomyopathy would include heavy alcohol intake, and also possibly an alcoholic cardiomyopathy. Note that the patient has significant degree of hepatic steatosis and this may be contributing as well. Not much in store from a GI standpoint for this type of patient. At this point in time, the main input should be from the cardiology service assuming a cardiomyopathy. I reviewed the medications that the patient is currently on. I think these are reasonable at the current time in point. The patient is currently also on DVT prophylactic medications. Keshav Arciniega DO
--- NOTE | 2017-06-30 08:47 | PN ---
DATE: 06/27/2017 ASSEMBLER ENGINE NOTE SUBJECTIVE: The patient is resting in bed, awake and alert. No complaints of pain. O2 via nasal cannula still has slight shortness of breath. He does have extreme lower extremity swelling and is noted to be tachycardic. Cardiology Dr. Hernandez has evaluated the patient, decided to put him on Primacor drip. No chest pain. No cough. No fever, chills, nausea or vomiting. Family is at bedside. PHYSICAL EXAMINATION: VITAL SIGNS: His temperature is 97.7, pulse is 128, respirations are 26, BP is 125/81, and O2 saturations are 98%. HEENT: Head is atraumatic, normocephalic. Eyes reactive to light. Ears, nose and throat seemed to be within normal limits. NECK: Supple. No JVD. No thyroid enlargement or lymph nodes. HEART: Regular rate and rhythm. Normal S1, S2, was tachycardic. LUNGS: Reveal mild rhonchi bilaterally. ABDOMEN: Soft. Decreased bowel sounds. GENITALIA AND RECTAL: Deferred. MUSCULOSKELETAL: No joint deformities. EXTREMITIES: Reveal 4+ lower extremity edema. NEUROLOGIC: He seemed to be grossly intact. LABORATORY DATA: As far as his laboratories are concerned, his white count is 5.0, hemoglobin is 12.9, and hematocrit is 39.9 with platelets of 159,000. Sodium is 133, potassium 3.2, chloride 96, CO2 of 30 with BUN of 5, creatinine of 0.6, and glucose of 83. Chest x-ray is pending. IMPRESSION: The patient has acute decompensated congestive heart failure, alcoholic cardiomyopathy and ejection fraction of approximately 10%. He has alcoholic liver disease as well as a history of alcohol abuse. PLAN: We will continue with O2 via nasal cannula. Primacor drip has been started by Cardiology. Chest x-ray will be followed as well. The patient is on Rocephin as well as azithromycin. We will continue IV diuresis. He is getting Lovenox and daily weights. The patient is getting I's and O's and will be started on multivitamins as well as folic acid. Getting DVT prophylaxis. I will continue to treat aggressively and follow closely along with the other consultants and the primary care doctor. Luis Barone MD
[2017-06-30] MEDS: Enoxaparin 120 mg Syringe SC SCH ×2 (09:01→23:54)
--- NOTE | 2017-06-30 10:19 | CP.PCM.PN ---
<Ming Díaz - Last Filed: 06/30/17 10:19> Subjective - Date & Time of Evaluation Date of Evaluation: 06/30/17 Time of Evaluation: 09:30 - Subjective Subjective: Subjective: Patient seen and examined at bedside. Resting comfortably in bed. No acute overnight events. Patient states admitting SOB and lower extremity swelling has improved relative to baseline. Offers no new complaints at this time. Denies fever, chills, chest pain, abdominal pain, nausea, vomiting, diarrhea, constipation, and urinary symptoms. 12-point review of systems negative except as indicated in the HPI Physical Examination: - Constitutional Appears: No Acute Distress - Head Exam Head Exam: ATRAUMATIC, NORMAL INSPECTION, NORMOCEPHALIC - Eye Exam Eye Exam: EOMI, Normal appearance - ENT Exam ENT Exam: Mucous Membranes Moist - Respiratory Exam Respiratory Exam: normal breathing pattern - Cardiovascular Exam Cardiovascular Exam: Tachycardia, REGULAR RHYTHM, +S1, +S2. absent: Murmur - GI/Abdominal Exam GI & Abdominal Exam: Normal Bowel Sounds. absent: Distended, Soft, Tenderness - Extremities Exam Additional comments: +2 pitting edema bilateral lower enormities. - Neurological Exam Neurological Exam: Patient is awake, alert, responds to verbal stimuli, answers questions appropriately, follows commands, and moves extremities past midline - Skin Skin Exam: Dry, Intact, Normal Color, Warm Assessment and Plan: Patient is a 37 yo M with no significant PMH who was admitted for evaluation and treatment of worsening edema and shortness of breath secondary to dilated cardiomyopathy with alcoholic liver. Dilated cardiolomyopathy - HR and BP reviewed, trended, and appreciated - EKG (06/27) - Sinus Tach/ non-specific T wave abnormality - CXR (06/27) - Mild pulmonary vascular congestive changes with what appear to represent mild b/l lower lobe alveolar-type infiltrates - ECHO (06/26) showed 4 chamber enlargement, Severe LV hypokinesis, Mild AI, MR , and TR, Mild Pulm HTN, Findings c/w Severe Dilated Cardiomyopathy (EF- 7.5%) - c/w coreg 6.25 mg - c/w Lasix 40 IVP BID PRN to avoid hypotension - c/w Aldactone 25 BID [facility] - cardiology consulted (Dr. Hernandez)- recommendations appreciated- no need for heart transplant at this time - cardiology recommended cath however it was cancelled as patient would like to be transferred to [facility]. Decompensated alcoholic liver disease - PT/INR at baseline - Downtrending LFTs - Abd US (06/26/17): Hepatomegaly, steatosis, no evidence of free fluid in the abdomen. - Hep Panel: NEGATIVE - B12 and Folate: WNL - Cont. Lasix 40 IVP BID PRN and Aldactone 25 BID MOO - Cont. Zinc supplement - GI consulted- appreciate recommendations- no acute GI intervention Alcohol abuse/withdrawal - c/w CIOR protocol - c/w Ativan 1 IVP Q6H PRN, Ativan 1mg IVP Q8H MOO - c/w B12, Folate, Multivitamins - Seizure/Fall precautions Hypervolemic Hyponatremia - Resolved - Likely 2/2 CHF vs cirrhosis Prophylaxis - GI PPx: Pepcid - DVT PPx: Heparin Dispo: Awaiting call back from [place] for possible transfer as per patient/family request. Patient seen, case discussed with, and plan approved by attending physician, Dr. Lund . Objective - Vital Signs/Intake and Output Vital Signs (last 24 hours): Temp Pulse Resp BP Pulse Ox 97.6 F 91 H 18 103/71 98 06/30/17 08:00 06/30/17 08:53 06/30/17 08:00 06/30/17 08:00 06/30/17 08:00 Intake and Output: 06/30/17 06/30/17 06:59 18:59 Intake Total 120 Output Total 720 Balance -600 - Medications Medications: Current Medications Carvedilol (Coreg) 6.25 mg PO BID [facility] Last Admin: 06/30/17 09:02 Dose: 6.25 mg Enoxaparin Sodium (Lovenox) 110 mg SC Q12 MOO PRN Reason: Protocol Last Admin: 06/30/17 09:01 Dose: 110 mg Folic Acid (Folic Acid) 1 mg PO DAILY [facility] Last Admin: 06/30/17 09:01 Dose: 1 mg Furosemide (Lasix) 40 mg IVP BID PRN PRN Reason: Swelling Lorazepam (Ativan) 1 mg PO Q8H MOO PRN Reason: Protocol Last Admin: 06/30/17 04:30 Dose: Not Given Lorazepam (Ativan) 1 mg IVP Q6H PRN PRN Reason: WITHDRAWAL or Agitation Last Admin: 06/30/17 00:30 Dose: 1 mg Ondansetron HCl (Zofran Inj) 4 mg IVP Q6H PRN PRN Reason: Nausea/Vomiting Spironolactone (Aldactone) 25 mg PO BID [facility] Last Admin: 06/30/17 09:02 Dose: 25 mg Thiamine HCl (Vitamin B1 Tab) 100 mg PO DAILY [facility] Last Admin: 06/30/17 09:01 Dose: 100 mg Zinc Sulfate (Zinc Sulfate 220 Mg Cap) 220 mg PO DAILY [facility] Last Admin: 06/30/17 09:01 Dose: 220 mg - Labs Labs: 06/30/17 06:20 06/30/17 06:20 PT 13.7 SECONDS (9.4-12.5) H 06/30/17 06:20 INR 1.24 (0.93-1.08) H 06/30/17 06:20 <Michel Lund - Last Filed: 06/30/17 15:05> Objective - Vital Signs/Intake and Output Vital Signs (last 24 hours): Temp Pulse Resp BP Pulse Ox 97.6 F 99 H 23 98/67 L 97 06/30/17 08:00 06/30/17 14:30 06/30/17 14:30 06/30/17 14:11 06/30/17 14:30 Intake and Output: 06/30/17 06/30/17 06:59 18:59 Intake Total 120 Output Total 720 Balance -600 - Medications Medications: Current Medications Carvedilol (Coreg) 6.25 mg PO BID [facility] Last Admin: 06/30/17 09:02 Dose: 6.25 mg Enoxaparin Sodium (Lovenox) 110 mg SC Q12 [facility] PRN Reason: Protocol Last Admin: 06/30/17 09:01 Dose: 110 mg Folic Acid (Folic Acid) 1 mg PO DAILY [facility] Last Admin: 06/30/17 09:01 Dose: 1 mg Furosemide (Lasix) 40 mg IVP BID [facility] Last Admin: 06/30/17 12:55 Dose: 40 mg Lorazepam (Ativan) 1 mg PO Q8H [facility]OO PRN Reason: Protocol Last Admin: 06/30/17 12:54 Dose: 1 mg Lorazepam (Ativan) 1 mg IVP Q6H PRN PRN Reason: WITHDRAWAL or Agitation Last Admin: 06/30/17 00:30 Dose: 1 mg Ondansetron HCl (Zofran Inj) 4 mg IVP Q6H PRN PRN Reason: Nausea/Vomiting Spironolactone (Aldactone) 25 mg PO BID [facility] Last Admin: 06/30/17 09:02 Dose: 25 mg Thiamine HCl (Vitamin B1 Tab) 100 mg PO DAILY [facility] Last Admin: 06/30/17 09:01 Dose: 100 mg Zinc Sulfate (Zinc Sulfate 220 Mg Cap) 220 mg PO DAILY [facility] Last Admin: 06/30/17 09:01 Dose: 220 mg - Labs Labs: 06/30/17 06:20 06/30/17 06:20 PT 13.7 SECONDS (9.4-12.5) H 06/30/17 06:20 INR 1.24 (0.93-1.08) H 06/30/17 06:20 Attending/Attestation - Attestation I have personally seen and examined this patient.: Yes I have fully participated in the care of the patient.: Yes I have reviewed all pertinent clinical information, including history, physical exam and plan: Yes Notes (Text): 06/30/17 15:04 37 year old male with past medical history of alcohol abuse who presented with dyspnea and LE edema. He was found to have severe dilated cardiomyopathy, likely alcoholic. He was seen by cardiology and started on iv lasix, spironalactone, milrinone infusion, lovenox and coreg. Plan is for transfer to [facility] tomorrow as per family request. I did discuss with senior case manager today. He was counselled on alcohol abstinence. Monitor for withdrawal symptoms. Transaminitis likely due to ETOH abuse; will continue to monitor. Will replete and repeat lytes. Family is also at bedside and questions were answered. Michel Lund MD Hospitalist.
--- NOTE | 2017-06-30 11:25 | CP.PCM.PN ---
Subjective - Date & Time of Evaluation Date of Evaluation: 06/30/17 Time of Evaluation: 08:00 - Subjective Subjective: Pt seen and examined, no major complaints. Objective - Vital Signs/Intake and Output Vital Signs (last 24 hours): Temp Pulse Resp BP Pulse Ox 97.6 F 103 H 24 101/67 98 06/30/17 08:00 06/30/17 10:11 06/30/17 10:11 06/30/17 10:11 06/30/17 10:11 Intake and Output: 06/30/17 06/30/17 06:59 18:59 Intake Total 120 Output Total 720 Balance -600 - Medications Medications: Current Medications Carvedilol (Coreg) 6.25 mg PO BID [facility] Last Admin: 06/30/17 09:02 Dose: 6.25 mg Enoxaparin Sodium (Lovenox) 110 mg SC Q12 [facility] PRN Reason: Protocol Last Admin: 06/30/17 09:01 Dose: 110 mg Folic Acid (Folic Acid) 1 mg PO DAILY [facility] Last Admin: 06/30/17 09:01 Dose: 1 mg Furosemide (Lasix) 40 mg IVP BID PRN PRN Reason: Swelling Lorazepam (Ativan) 1 mg PO Q8H [facility]OO PRN Reason: Protocol Last Admin: 06/30/17 04:30 Dose: Not Given Lorazepam (Ativan) 1 mg IVP Q6H PRN PRN Reason: WITHDRAWAL or Agitation Last Admin: 06/30/17 00:30 Dose: 1 mg Ondansetron HCl (Zofran Inj) 4 mg IVP Q6H PRN PRN Reason: Nausea/Vomiting Spironolactone (Aldactone) 25 mg PO BID [facility] Last Admin: 06/30/17 09:02 Dose: 25 mg Thiamine HCl (Vitamin B1 Tab) 100 mg PO DAILY [facility] Last Admin: 06/30/17 09:01 Dose: 100 mg Zinc Sulfate (Zinc Sulfate 220 Mg Cap) 220 mg PO DAILY [facility] Last Admin: 06/30/17 09:01 Dose: 220 mg - Labs Labs: 06/30/17 06:20 06/30/17 06:20 PT 13.7 SECONDS (9.4-12.5) H 06/30/17 06:20 INR 1.24 (0.93-1.08) H 06/30/17 06:20 - Constitutional Appears: Well, Non-toxic, No Acute Distress - Eye Exam Eye Exam: Normal appearance - ENT Exam ENT Exam: Mucous Membranes Moist - Respiratory Exam Respiratory Exam: Clear to Ausculation Bilateral, NORMAL BREATHING PATTERN - Cardiovascular Exam Cardiovascular Exam: REGULAR RHYTHM, +S1, +S2 - GI/Abdominal Exam GI & Abdominal Exam: Soft, Normal Bowel Sounds - Extremities Exam Extremities Exam: Pedal Edema Assessment and Plan - Assessment and Plan (Free Text) Assessment: 37yo male a/w decompensated systolic chf, etoh abuse. Acute Decompesanted CHF exacerbation EtOH abuse SOB - currently afebrile, HD stable, comfortable in NAD, sat 99% on 2LNC - awaiting transfer to [place] Recommend: - supp o2 as needed - follow up cultures - BP control - IV Lasix - Coreg - Cont with Spironolactone - Monitor I/Os, daily weights, low salt diet - [facility] protocol - Thiamine, Folic Acid, MVT - GI ppx, PPI - DVT ppx, Lovenox
[2017-06-30] MEDS ORDERED: Magnesium Sulfate 1 gm in D5W 1 GM/100 ML BAG IVPB ONE (12:05)
--- NOTE | 2017-06-30 15:44 | PN ---
DATE: 06/30/2017 CARDIOLOGY FOLLOWUP SUBJECTIVE: The patient's breathing is better. He remains with persistent pedal edema. PHYSICAL EXAMINATION VITAL SIGNS: Blood pressure is 97/74, the heart rate is in the 100 to 110. NECK: Negative JVD. LUNGS: Decreased breath sounds bilaterally. HEART: Reveal S1, S2. EXTREMITIES: 1+ edema. LABORATORY DATA: Hemoglobin is 13.8. Chemistries: Potassium is 4.0 with a magnesium of 1.6. IMPRESSION: 1. Right and left heart congestive heart failure. 2. Dilated cardiomyopathy. 3. Dyspnea. 4. Pedal edema. 5. Hypomagnesemia. PLAN: Given these findings, we will order magnesium replacement. We will continue Lasix 40 b.i.d. At the patient's request, awaiting transfer to [facility]. Daniel Hernandez MD
[2017-07-01 02:15] VITALS: O2SAT 100
[2017-07-01 06:58] LABS: BASO # 0.04 K/mm3 (0.0-2.0); BASO % 0.9 % (0.0-3.0); EOS # 0.1 (0.0-0.7); EOS % 2.2 % (1.5-5.0); GRAN # 2.16 (1.4-6.5); GRAN % 48.3 % (50.0-68.0); HEMOGLOBIN 13.6 g/dL (14.0-18.0); LYMPH # 1.5 (1.2-3.4); MEAN CELL VOLUME 110.1 fl (80.0-105.0); MEAN CORPUSCULAR HEMOGLOBIN 35.2 pg (25.0-35.0); MEAN PLATELET VOLUME 10.8 fl (7.0-11.0); MONO # 0.7 (0.1-0.6); MONO % 15.6 % (1.0-6.0); RBC 3.86 10^6/uL (3.5-6.1); WHITE BLOOD COUNT 4.5 10^3/ul (4.5-11.0)
[2017-07-01 07:19] LABS: INR 1.31 (0.93-1.08); PROTHROMBIN TIME 14.5 SECONDS (9.4-12.5)
[2017-07-01 07:38] LABS: ALBUMIN 2.9 g/dL (3.0-4.8); ALT/SGPT 77 U/L (7-56); AST/SGOT 54 U/L (17-59); BLOOD UREA NITROGEN 9 mg/dL (7-21); CALCIUM 8.7 mg/dL (8.4-10.5); GFR AFRICAN-AMERICAN > 60; GFR NON-AFRICAN AMERICAN > 60; MAGNESIUM 1.6 mg/dL (1.7-2.2)
[2017-07-01 07:55] LABS: ALB/GLOB RATIO 1.1 (1.1-1.8)
[2017-07-01] MEDS ORDERED: Magnesium Sulfate 1 gm in D5W 1 GM/100 ML BAG IVPB ONE (08:31)
--- NOTE | 2017-07-01 08:49 | CP.PCM.PN ---
Subjective - Date & Time of Evaluation Date of Evaluation: 07/01/17 Time of Evaluation: 07:45 - Subjective Subjective: Subjective: Patient seen and examined at bedside. Resting comfortably in bed. No acute overnight events. Admits to feeling anxious which has improved since being given ativan. Believes the anxiety is due to being in hospital for several days. Patient states admitting SOB and lower extremity swelling has improved relative to baseline. Denies fever, chills, chest pain, abdominal pain, nausea, vomiting, diarrhea, constipation, and urinary symptoms. 12-point review of systems negative except as indicated in the HPI Physical Examination: - Constitutional Appears: No Acute Distress - Head Exam Head Exam: ATRAUMATIC, NORMAL INSPECTION, NORMOCEPHALIC - Eye Exam Eye Exam: EOMI, Normal appearance - ENT Exam ENT Exam: Mucous Membranes Moist - Respiratory Exam Respiratory Exam: normal breathing pattern - Cardiovascular Exam Cardiovascular Exam: Tachycardia, REGULAR RHYTHM, +S1, +S2. absent: Murmur - GI/Abdominal Exam GI & Abdominal Exam: Normal Bowel Sounds. absent: Distended, Soft, Tenderness - Extremities Exam Additional comments: +2 pitting edema bilateral lower enormities. - Neurological Exam Neurological Exam: Patient is awake, alert, responds to verbal stimuli, answers questions appropriately, follows commands, and moves extremities past midline - Skin Skin Exam: Dry, Intact, Normal Color, Warm Assessment and Plan: Patient is a 37 yo M with no significant PMH who was admitted for evaluation and treatment of worsening edema and shortness of breath secondary to dilated cardiomyopathy with alcoholic liver. Dilated cardiolomyopathy - HR and BP reviewed, trended, and appreciated - EKG (06/27) - Sinus Tach/ non-specific T wave abnormality - CXR (06/27) - Mild pulmonary vascular congestive changes with what appear to represent mild b/l lower lobe alveolar-type infiltrates - ECHO (06/26) showed 4 chamber enlargement, Severe LV hypokinesis, Mild AI, MR , and TR, Mild Pulm HTN, Findings c/w Severe Dilated Cardiomyopathy (EF- 7.5%) - c/w coreg 6.25 mg - c/w Lasix 40 IVP BID PRN to avoid hypotension - c/w Aldactone 25 BID [facility] - cardiology consulted (Dr. Hernandez)- recommendations appreciated- no need for heart transplant at this time - cardiology recommended cath however it was cancelled as patient would like to be transferred to [facility]. Decompensated alcoholic liver disease - PT/INR at baseline - Downtrending LFTs - Abd US (06/26/17): Hepatomegaly, steatosis, no evidence of free fluid in the abdomen. - Hep Panel: NEGATIVE - B12 and Folate: WNL - Cont. Lasix 40 IVP BID PRN and Aldactone 25 BID [facility] - Cont. Zinc supplement - GI consulted- appreciate recommendations- no acute GI intervention Alcohol abuse/withdrawal - c/w CINJ protocol - c/w Ativan 1 IVP Q6H PRN, Ativan 1mg IVP Q8H MOO - c/w B12, Folate, Multivitamins - Seizure/Fall precautions Hypervolemic Hyponatremia - Resolved - Likely 2/2 CHF vs cirrhosis Prophylaxis - GI PPx: Pepcid - DVT PPx: Heparin Dispo: Awaiting call back from [place] for possible transfer as per patient/family request. Patient seen, case discussed with, and plan approved by attending physician, Dr. Lund . Objective - Vital Signs/Intake and Output Vital Signs (last 24 hours): Temp Pulse Resp BP Pulse Ox 98.7 F 86 20 126/54 L 100 06/30/17 20:00 06/30/17 20:00 06/30/17 20:00 06/30/17 20:00 06/30/17 20:00 - Medications Medications: Current Medications Carvedilol (Coreg) 6.25 mg PO BID [facility] Last Admin: 06/30/17 18:24 Dose: 6.25 mg Enoxaparin Sodium (Lovenox) 110 mg SC Q12 [facility]OO PRN Reason: Protocol Last Admin: 06/30/17 23:54 Dose: 110 mg Folic Acid (Folic Acid) 1 mg PO DAILY [facility] Last Admin: 06/30/17 09:01 Dose: 1 mg Furosemide (Lasix) 40 mg IVP BID [facility] Last Admin: 06/30/17 18:32 Dose: 40 mg Magnesium Sulfate/Dextrose (Magnesium Sulfate 1 Gm/100 Ml D5w) 1 gm in 100 mls @ 100 mls/hr IVPB ONCE ONE Stop: 07/01/17 09:30 Lorazepam (Ativan) 1 mg PO Q8H MOO PRN Reason: Protocol Last Admin: 07/01/17 07:38 Dose: 1 mg Lorazepam (Ativan) 1 mg IVP Q6H PRN PRN Reason: WITHDRAWAL or Agitation Last Admin: 06/30/17 00:30 Dose: 1 mg Ondansetron HCl (Zofran Inj) 4 mg IVP Q6H PRN PRN Reason: Nausea/Vomiting Spironolactone (Aldactone) 25 mg PO BID [facility] Last Admin: 06/30/17 18:24 Dose: 25 mg Thiamine HCl (Vitamin B1 Tab) 100 mg PO DAILY [facility] Last Admin: 06/30/17 09:01 Dose: 100 mg Zinc Sulfate (Zinc Sulfate 220 Mg Cap) 220 mg PO DAILY [facility] Last Admin: 06/30/17 09:01 Dose: 220 mg - Labs Labs: 07/01/17 06:30 07/01/17 06:30 PT 14.5 SECONDS (9.4-12.5) H 07/01/17 06:30 INR 1.31 (0.93-1.08) H 07/01/17 06:30
[2017-07-01] MEDS ORDERED: Potassium Chloride 20 mEq/15 ml LIQ UD PO STA (09:51)
[2017-07-01] MEDS: Enoxaparin 120 mg Syringe SC SCH (10:09)
--- NOTE | 2017-07-01 12:58 | CP.PCM.DIS ---
<Ming Díaz - Last Filed: 07/01/17 13:12> Provider - Provider Date of Admission: 06/25/17 22:43 Attending physician: Michel Lund MD Primary care physician: Rios Moore MD Time Spent in preparation of Discharge (in minutes): 45 Diagnosis - Discharge Diagnosis (1) Dilated cardiomyopathy Status: Acute Priority: High (2) Alcoholic liver disease Status: Chronic Priority: Medium (3) Alcohol abuse Status: Chronic Priority: Medium Hospital Course - Lab Results Lab Results: Micro Results 06/26/17 14:10 Naris MRSA Culture (Admit) - Final MRSA NOT DETECTED Most Recent Lab Values WBC 4.5 10^3/ul (4.5-11.0) 07/01/17 06:30 RBC 3.86 10^6/uL (3.5-6.1) 07/01/17 06:30 Hgb 13.6 g/dL (14.0-18.0) L 07/01/17 06:30 Hct 42.5 % (42.0-52.0) 07/01/17 06:30 MCV 110.1 fl (80.0-105.0) H 07/01/17 06:30 MCH 35.2 pg (25.0-35.0) H 07/01/17 06:30 MCHC 32.0 g/dl (31.0-37.0) 07/01/17 06:30 RDW 14.0 % (11.5-14.5) 07/01/17 06:30 Plt Count 156 10^3/uL (120.0-450.0) 07/01/17 06:30 MPV 10.8 fl (7.0-11.0) 07/01/17 06:30 Gran % 48.3 % (50.0-68.0) L 07/01/17 06:30 Lymph % (Auto) 33.0 % (22.0-35.0) 07/01/17 06:30 Finney % (Auto) 15.6 % (1.0-6.0) H 07/01/17 06:30 Eos % (Auto) 2.2 % (1.5-5.0) 07/01/17 06:30 Baso % (Auto) 0.9 % (0.0-3.0) 07/01/17 06:30 Gran # 2.16 (1.4-6.5) 07/01/17 06:30 Lymph # 1.5 (1.2-3.4) 07/01/17 06:30 Finney # 0.7 (0.1-0.6) H 07/01/17 06:30 Eos # 0.1 (0.0-0.7) 07/01/17 06:30 Baso # 0.04 K/mm3 (0.0-2.0) 07/01/17 06:30 PT 14.5 SECONDS (9.4-12.5) H 07/01/17 06:30 INR 1.31 (0.93-1.08) H 07/01/17 06:30 Sodium 134 mmol/L (132-148) 07/01/17 06:30 Potassium 3.6 mmol/L (3.6-5.0) 07/01/17 06:30 Chloride 97 mmol/L (98-107) L 07/01/17 06:30 Carbon Dioxide 28 mmol/L (21-33) 07/01/17 06:30 Anion Gap 13 (10-20) 07/01/17 06:30 BUN 9 mg/dL (7-21) 07/01/17 06:30 Creatinine 0.8 mg/dl (0.8-1.5) 07/01/17 06:30 Est GFR ( Amer) > 60 07/01/17 06:30 Est GFR (Non-Af Amer) > 60 07/01/17 06:30 Random Glucose 83 mg/dL (70-110) 07/01/17 06:30 Serum Osmolality 295 mosm/kg (272-300) 06/26/17 01:30 Calcium 8.7 mg/dL (8.4-10.5) 07/01/17 06:30 Phosphorus 4.6 mg/dL (2.5-4.5) H 07/01/17 06:30 Magnesium 1.6 mg/dL (1.7-2.2) L 07/01/17 06:30 Total Bilirubin 1.2 mg/dL (0.2-1.3) 07/01/17 06:30 AST 54 U/L (17-59) 07/01/17 06:30 ALT 77 U/L (7-56) H 07/01/17 06:30 Alkaline Phosphatase 73 U/L (38-126) 07/01/17 06:30 Ammonia < 9 umol/L (9-33) L 06/25/17 22:55 Troponin I 0.03 ng/mL 06/26/17 09:00 NT-Pro-B Natriuret Pep 5480 pg/mL (0-450) H 06/26/17 01:30 Total Protein 5.4 g/dL (5.8-8.3) L 07/01/17 06:30 Albumin 2.9 g/dL (3.0-4.8) L 07/01/17 06:30 Globulin 2.6 gm/dL 07/01/17 06:30 Albumin/Globulin Ratio 1.1 (1.1-1.8) 07/01/17 06:30 Vitamin B12 > 1000 pg/mL (239-931) H 06/26/17 05:30 Folate > 20.0 ng/mL 06/26/17 05:30 Urine Color Straw (YELLOW) 06/26/17 03:20 Urine Appearance Clear (CLEAR) 06/26/17 03:20 Urine pH 6.0 (4.7-8.0) 06/26/17 03:20 Ur Specific Baldwin <= 1.005 (1.005-1.035) 06/26/17 03:20 Urine Protein Negative mg/dL (<30 mg/dL) 06/26/17 03:20 Urine Glucose (UA) Negative mg/dL (NEGATIVE) 06/26/17 03:20 Urine Ketones Negative mg/dL (NEGATIVE) 06/26/17 03:20 Urine Blood Negative (NEGATIVE) 06/26/17 03:20 Urine Nitrate Negative (NEGATIVE) 06/26/17 03:20 Urine Bilirubin Negative (NEGATIVE) 06/26/17 03:20 Urine Urobilinogen 0.2 E.U./dL (<1 E.U./dL) 06/26/17 03:20 Ur Leukocyte Esterase Negative Wendi/uL (NEGATIVE) 06/26/17 03:20 Urine Osmolality 169 mosm/kg (300-1000) L 06/26/17 03:20 Ur Random Sodium 58 meq/L 06/26/17 03:20 Ur Random Potassium 19.7 meq/L 06/26/17 03:20 Alcohol, Quantitative 127 mg/dL (0-10) H 06/25/17 21:05 Hepatitis A IgM Ab Negative (NEGATIVE) 06/26/17 01:30 Hep Bs Antigen Negative (NEGATIVE) 06/26/17 01:30 Hep B Core IgM Ab Negative (NEGATIVE) 06/26/17 01:30 Hepatitis C Antibody Negative (NEGATIVE) 06/26/17 01:30 - Hospital Course Hospital Course: Patient is a 37 year old male with no significant PMHx who was admitted for evaluation and treatment of worsening edema and shortness of breath With the use of physical examinations, lab work, and imaging the patient was diagnosed with and treated for dilated cardiomyopathy, decompensated alcoholic liver disease, and alcohol withdrawl. During their hospital stay the patient was seen by the critical care physician, cardiology, and gastroenterology whose recommendations were both appreciated and utilized in the care for this patient. During their hospital stay the patient underwent an echocardiogram, CXR , EKG, and abdominal ultrasound which were reviewed, appreciated, and utilized in the management of the patients clinical course. Echocardiogram revealed a LVEF of 7.5%. Patient was treated with antihypertensive medications, anticoagulants, diuretics, benzodiazepines amongst other empiric/therapeutic medications. At the request of the patient and family, he will be transferred to [facility]. Patient understands and appreciates discharge plan. Patient instructed to follow up with primary care physicians 3- 5 days from discharge. Furthermore, the patient is instructed to take medications as prescribed and to return to emergency room for evaluation of intractable headache, fever, chills, dizziness, chest pain, shortness of breath , abdominal pain, nausea, vomiting, diarrhea, constipation, and urinary symptoms. This is a brief summary of the patients hospital course. Please see patient chart for full details. Discharge Exam - Head Exam Head Exam: ATRAUMATIC, NORMAL INSPECTION, NORMOCEPHALIC - Additional Findings Additional findings: - Constitutional Appears: No Acute Distress - Head Exam Head Exam: ATRAUMATIC, NORMAL INSPECTION, NORMOCEPHALIC - Eye Exam Eye Exam: EOMI, Normal appearance - ENT Exam ENT Exam: Mucous Membranes Moist - Respiratory Exam Respiratory Exam: normal breathing pattern - Cardiovascular Exam Cardiovascular Exam: Tachycardia, REGULAR RHYTHM, +S1, +S2. absent: Murmur - GI/Abdominal Exam GI & Abdominal Exam: Normal Bowel Sounds. absent: Distended, Soft, Tenderness - Extremities Exam Additional comments: +2 pitting edema bilateral lower enormities. - Neurological Exam Neurological Exam: Patient is awake, alert, responds to verbal stimuli, answers questions appropriately, follows commands, and moves extremities past midline - Skin Skin Exam: Dry, Intact, Normal Color, Warm Discharge Plan - Follow Up Plan Condition: SERIOUS Disposition: OTHER INSTITUTION Patient education suggested?: Yes Additional Instructions: Patient Instructions: Take medications as prescribed. Follow up with PMD Return to the emergency room for evaluation of intractable headache, fever, chills, dizziness, chest pain, shortness of breath, abdominal pain, nausea, vomiting, diarrhea, constipation, and urinary symptoms. Referrals: Rios Moore MD [Primary Care Provider] - <Michel Lund - Last Filed: 07/01/17 13:25> Provider - Provider Date of Admission: 06/25/17 22:43 Attending physician: Michel Lund MD Primary care physician: Rios Moore MD Hospital Course - Lab Results Lab Results: Micro Results 06/26/17 14:10 Naris MRSA Culture (Admit) - Final MRSA NOT DETECTED Most Recent Lab Values WBC 4.5 10^3/ul (4.5-11.0) 07/01/17 06:30 RBC 3.86 10^6/uL (3.5-6.1) 07/01/17 06:30 Hgb 13.6 g/dL (14.0-18.0) L 07/01/17 06:30 Hct 42.5 % (42.0-52.0) 07/01/17 06:30 MCV 110.1 fl (80.0-105.0) H 07/01/17 06:30 MCH 35.2 pg (25.0-35.0) H 07/01/17 06:30 MCHC 32.0 g/dl (31.0-37.0) 07/01/17 06:30 RDW 14.0 % (11.5-14.5) 07/01/17 06:30 Plt Count 156 10^3/uL (120.0-450.0) 07/01/17 06:30 MPV 10.8 fl (7.0-11.0) 07/01/17 06:30 Gran % 48.3 % (50.0-68.0) L 07/01/17 06:30 Lymph % (Auto) 33.0 % (22.0-35.0) 07/01/17 06:30 Finney % (Auto) 15.6 % (1.0-6.0) H 07/01/17 06:30 Eos % (Auto) 2.2 % (1.5-5.0) 07/01/17 06:30 Baso % (Auto) 0.9 % (0.0-3.0) 07/01/17 06:30 Gran # 2.16 (1.4-6.5) 07/01/17 06:30 Lymph # 1.5 (1.2-3.4) 07/01/17 06:30 Finney # 0.7 (0.1-0.6) H 07/01/17 06:30 Eos # 0.1 (0.0-0.7) 07/01/17 06:30 Baso # 0.04 K/mm3 (0.0-2.0) 07/01/17 06:30 PT 14.5 SECONDS (9.4-12.5) H 07/01/17 06:30 INR 1.31 (0.93-1.08) H 07/01/17 06:30 Sodium 134 mmol/L (132-148) 07/01/17 06:30 Potassium 3.6 mmol/L (3.6-5.0) 07/01/17 06:30 Chloride 97 mmol/L (98-107) L 07/01/17 06:30 Carbon Dioxide 28 mmol/L (21-33) 07/01/17 06:30 Anion Gap 13 (10-20) 07/01/17 06:30 BUN 9 mg/dL (7-21) 07/01/17 06:30 Creatinine 0.8 mg/dl (0.8-1.5) 07/01/17 06:30 Est GFR ( Amer) > 60 07/01/17 06:30 Est GFR (Non-Af Amer) > 60 07/01/17 06:30 Random Glucose 83 mg/dL (70-110) 07/01/17 06:30 Serum Osmolality 295 mosm/kg (272-300) 06/26/17 01:30 Calcium 8.7 mg/dL (8.4-10.5) 07/01/17 06:30 Phosphorus 4.6 mg/dL (2.5-4.5) H 07/01/17 06:30 Magnesium 1.6 mg/dL (1.7-2.2) L 07/01/17 06:30 Total Bilirubin 1.2 mg/dL (0.2-1.3) 07/01/17 06:30 AST 54 U/L (17-59) 07/01/17 06:30 ALT 77 U/L (7-56) H 07/01/17 06:30 Alkaline Phosphatase 73 U/L (38-126) 07/01/17 06:30 Ammonia < 9 umol/L (9-33) L 06/25/17 22:55 Troponin I 0.03 ng/mL 06/26/17 09:00 NT-Pro-B Natriuret Pep 5480 pg/mL (0-450) H 06/26/17 01:30 Total Protein 5.4 g/dL (5.8-8.3) L 07/01/17 06:30 Albumin 2.9 g/dL (3.0-4.8) L 07/01/17 06:30 Globulin 2.6 gm/dL 07/01/17 06:30 Albumin/Globulin Ratio 1.1 (1.1-1.8) 07/01/17 06:30 Vitamin B12 > 1000 pg/mL (239-931) H 06/26/17 05:30 Folate > 20.0 ng/mL 06/26/17 05:30 Urine Color Straw (YELLOW) 06/26/17 03:20 Urine Appearance Clear (CLEAR) 06/26/17 03:20 Urine pH 6.0 (4.7-8.0) 06/26/17 03:20 Ur Specific Baldwin <= 1.005 (1.005-1.035) 06/26/17 03:20 Urine Protein Negative mg/dL (<30 mg/dL) 06/26/17 03:20 Urine Glucose (UA) Negative mg/dL (NEGATIVE) 06/26/17 03:20 Urine Ketones Negative mg/dL (NEGATIVE) 06/26/17 03:20 Urine Blood Negative (NEGATIVE) 06/26/17 03:20 Urine Nitrate Negative (NEGATIVE) 06/26/17 03:20 Urine Bilirubin Negative (NEGATIVE) 06/26/17 03:20 Urine Urobilinogen 0.2 E.U./dL (<1 E.U./dL) 06/26/17 03:20 Ur Leukocyte Esterase Negative Wendi/uL (NEGATIVE) 06/26/17 03:20 Urine Osmolality 169 mosm/kg (300-1000) L 06/26/17 03:20 Ur Random Sodium 58 meq/L 06/26/17 03:20 Ur Random Potassium 19.7 meq/L 06/26/17 03:20 Alcohol, Quantitative 127 mg/dL (0-10) H 06/25/17 21:05 Hepatitis A IgM Ab Negative (NEGATIVE) 06/26/17 01:30 Hep Bs Antigen Negative (NEGATIVE) 06/26/17 01:30 Hep B Core IgM Ab Negative (NEGATIVE) 06/26/17 01:30 Hepatitis C Antibody Negative (NEGATIVE) 06/26/17 01:30 Attending/Attestation - Attestation I have personally seen and examined this patient.: Yes I have fully participated in the care of the patient.: Yes I have reviewed all pertinent clinical information, including history, physical exam and plan: Yes Notes (Text): 07/01/17 13:22 37 year old male with past medical history of alcohol abuse who presented with dyspnea and LE edema. He was found to have severe dilated cardiomyopathy, likely alcoholic. He was seen by cardiology and started on iv lasix, spironalactone, milrinone infusion, lovenox and coreg. He was offered cardiac cath with Dr. Hernandez, however patient and family requested to be transferred to [facility]. I did discuss and endorse the patient with silver steward today at [facility] who states patient has been accepted. He was counselled on alcohol abstinence. He was on ativan for withdrawal symptoms. Transaminitis likely due to ETOH abuse. Recommended close monitoring. Michel Lund MD Hospitalist.
--- NOTE | 2017-07-01 13:07 | PN ---
CARDIOLOGY FOLLOWUP DATE: 07/01/2017 SUBJECTIVE: The patient's breathing is stable. OBJECTIVE: VITAL SIGNS: Blood pressure is 126/54, heart rate is 100-110. NECK: Negative JVD. LUNGS: Decreased breath sounds without rales. HEART: Reveals S1, S2. EXTREMITIES: 1+ edema. LABORATORY DATA: Hemoglobin is 13.6. Chemistries, potassium is 3.6 and magnesium is 1.6. IMPRESSION: 1. Improved congestive heart failure. 2. Chronic pedal edema. 3. Severe dilated cardiomyopathy. 4. Hypomagnesemia. 5. Dyspnea, which is better. Given these findings, we will transfer the patient to [facility] so that he can start ambulating. We will order BETI stockings for the patient's lower extremities. We will replace the magnesium. Still awaiting the patient's transfer to [place] at the patient's and family's insistence. Daniel Hernandez MD
[2017-07-01 16:53] VITALS: BP 103/70; PULSE 106; RESP 24
[2017-07-01 17:08] VITALS: TEMP 98.6
== END 2017-07-01 13:15 | disposition short-term general hospital (02) | DRG 292 ==
LOC: ED 20:09 → ERH 22:43 → 3RSO 06-26 01:16 → ICU 06-26 14:00
PROVIDERS: ADMIT Internal Medicine; ATTEND Internal Medicine
DX: I50.23 Acute on chronic systolic (congestive) heart failure (principal); I42.6 Alcoholic cardiomyopathy; F10.239 Alcohol dependence with withdrawal, unspecified; I27.20 Pulmonary hypertension, unspecified; E83.42 Hypomagnesemia; E87.1 Hypo-osmolality and hyponatremia; K70.9 Alcoholic liver disease, unspecified; F12.90 Cannabis use, unspecified, uncomplicated; K76.0 Fatty (change of) liver, not elsewhere classified; Y90.6 Blood alcohol level of 120-199 mg/100 ml; D53.9 Nutritional anemia, unspecified; Z82.49 Family history of ischemic heart disease and other diseases of the circulatory system